=== PATIENT | female | born 1960 | race Caucasian/White ===

== ENCOUNTER 2016-08-31 23:59 | Emergency (ER) | payer SELFPAY ==
[~2016-08-31] VITALS: Ht 160 cm; Wt 68.0 kg
[~2016-08-31 23:59] MED LIST: ASA; ASPIRIN81 M3 PO; ATENOLOL25 M1 PO; CYMBALTA30 MG PO; DIABETA5 M1 PO; GEMFIBROZIL600 M1 PO; GLUCOPHAGE500 MG PO; GLYBURIDE5 M1 PO; HCTZ PO; IMITREX50 MG PO; LANTUS100 U/ML SC; LISINOPRIL20 M1 PO; MECLIZINE25 M1 PO; METFORMIN1000 MG PO; OMEPRAZOLE20 M1 PO; PAXIL20 M1 PO; PROMETHAZINE25 M1 PO; SEPTRA DS 800 M1 TA1 PO; TAGAMET PO; TEGRETOL200 MG PO; ZESTRIL40 M1 PO
[2016-09-01 00:17] VITALS: BP 141/77
[2016-09-01] MEDS ORDERED: GLUCOTROL10 M1 PO (00:43)
[2016-09-01] MEDS ORDERED: RANITIDINE150 M1 PO (00:43)
[2016-09-01] MEDS ORDERED: TOPIRAMATE100 MG PO (00:43)
[2016-09-01] MEDS ORDERED: ZOLOFT100 M1 PO (00:43)
[2016-09-01] MEDS ORDERED: ACTOS45 M1 PO (00:43)
--- NOTE | 2016-09-01 01:41 | NUR ---
PATIENT TO BED 4.
--- NOTE | 2016-09-01 01:42 | NUR ---
55Y F BIB SELF C/O OF MIGRAINE AND AB PAIN X 1 WEEK . PT STATE SHE HAS NOT BEEN ABLE TO EAT ANYTHING FOR 1 WEEK JUST WATER. PT DENIES N/V/D; SKIN IS PINK/WARM/DRY; AAOX4 WITH EVEN AND STEADY GAIT; LUNGS CLEAR BL; HR EVEN AND REGULAR; PT DENIES ANY FEVER, CP, SOB, OR COUGH AT THIS TIME; PATIENT STATES PAIN OF 10/10 AT THIS TIME; VSS; PATIENT POSITIONED FOR COMFORT; HOB ELEVATED; BEDRAILS UP X2; BED DOWN. ER MD MADE AWARE OF PT STATUS.
--- NOTE | 2016-09-01 03:17 | NUR ---
Patient being evaluated by physician at bedside.
[2016-09-01] MEDS ORDERED: NACL 0.9% 1,000 ML IV ONE (03:24)
[2016-09-01] MEDS ORDERED: METOCLOPRAMIDE 10 MG/2 ML INJ VIAL IVP ONE (03:25)
[2016-09-01] MEDS ORDERED: diphenhydrAMINE 50 MG/ML VIAL IVP ONE (03:25)
--- NOTE | 2016-09-01 04:51 | NUR ---
IV removed, catheter intact and site benign. Applied folded 4x4 gauze and tape to stop bleeding.
--- NOTE | 2016-09-01 04:52 | NUR ---
Patient discharged with v/s stable. Written and verbal after care instructions given and explained. Patient alert, oriented and verbalized understanding of instructions. Ambulatory with steady gait. All questions addressed prior to discharge. ID band removed. Patient advised to follow up with PMD. Rx of MOTRIN 600MG, CIPRO 500MG, NORCO 5/325MG, ZOFRAN 8MG given. Patient educated on indication of medication including possible reaction and side effects. Opportunity to ask questions provided and answered.
[2016-09-01 04:53] VITALS: BP 127/79
== END 2016-09-01 04:52 | disposition home or self-care (01) ==
LOC: MED 23:59
DX: N39.0 Urinary tract infection, site not specified (principal); K31.84 Gastroparesis; K21.9 Gastro-esophageal reflux disease without esophagitis; I10 Essential (primary) hypertension; E11.9 Type 2 diabetes mellitus without complications; Z86.73 Personal history of transient ischemic attack (TIA), and cerebral infarction without residual deficits; Z90.49 Acquired absence of other specified parts of digestive tract; Z79.899 Other long term (current) drug therapy
CPT/HCPCS: 36415; 80053; 81001; 81025; 83690; 85025; 87086; 87186; 96361; 96374; 96375; 99284; J1200; J2765; J7030

== ENCOUNTER 2016-09-03 05:32 | Inpatient (IN) | payer SELFPAY ==
[~2016-09-03] VITALS: Ht 157.5 cm; Wt 71.2 kg
[~2016-09-03 05:32] MED LIST changes: +ACTOS45 M1 PO; +GLUCOTROL10 M1 PO; +RANITIDINE150 M1 PO; +TOPIRAMATE100 MG PO; +ZOLOFT100 M1 PO
[2016-09-03 05:48] VITALS: BP 150/75
--- NOTE | 2016-09-03 05:56 | NUR ---
PT TAKEN TO BED 8
--- NOTE | 2016-09-03 05:58 | NUR ---
55 YEAR OLD FEMALE C/O ABD PAIN AND HEADACHE, N/V X1 WEEK. PATIENT STATED WAS SEEN 2 DAYS AGO HERE IN ER, BUT CONDITION WORSEN, NO S/S OF DISTRESS, ER MD AT BEDSIDE.
[2016-09-03] MEDS ORDERED: NACL 0.9% 1,000 ML IV SCH (06:11)
--- NOTE | 2016-09-03 06:12 | NUR ---
Dr. Lange evaluating patient at bedside.
[2016-09-03] MEDS ORDERED: ONDANSETRON 4 MG/2 ML VIAL IVP ONE ×2 (06:15→07:50)
[2016-09-03] MEDS ORDERED: INSULIN HUMAN REGULAR 100 UNITS/ML 10 ML VIAL IVP ONE ×2 (06:15→06:35)
[2016-09-03] MEDS ORDERED: FAMOTIDINE 20 MG/2 ML VIAL IVP ONE (06:15)
--- NOTE | 2016-09-03 07:12 | NUR ---
Pt report given to VELASQUEZ MTZ. Transfer of care at this time.
--- NOTE | 2016-09-03 07:17 | NUR ---
Took over care of patient, introducted myself to the patient and gave them an update that we are waiting on lab work to return. Patient resting comfortably in bed, denies mike N/V/D, No CP or SOB. Patient states she is feeling a little dizzy, side rail up x1 family at bedside where the other side rail is down.
--- NOTE | 2016-09-03 07:48 | NUR ---
Notified ER doctor that patient is vomitting and feels dizzy. Ordered zofran IVP and 1 liter of NS fluid.
[2016-09-03] MEDS ORDERED: NACL 0.9% 1,000 ML IV ONE (07:50)
--- NOTE | 2016-09-03 08:25 | NUR ---
patient is resting in bed, no longer vomitting, IVF still running as patient keeps bending her arm which is stopping the IV pump. Instructed patient to do the best she can to keep her arm straight so the IVF can continue to go in.
--- NOTE | 2016-09-03 09:16 | NUR ---
patient is vomitting, notified ER Doctor
[2016-09-03] MEDS ORDERED: METOCLOPRAMIDE 10 MG/2 ML INJ VIAL IVP ONE (09:20)
--- NOTE | 2016-09-03 09:35 | NUR ---
Patient resting in bed no vomitting at this time
--- NOTE | 2016-09-03 10:22 | NUR ---
patient having vomitting at this time ER notified
--- NOTE | 2016-09-03 11:36 | NUR ---
Pt report given to Bhargav. Transfer of care at this time.
[2016-09-03] MEDS ORDERED: ONDANSETRON 4 MG/2 ML VIAL IVP PRN (11:40)
[2016-09-03] MEDS ORDERED: MORPHINE SULFATE 2 MG/ML SYR IVP PRN (11:40)
[2016-09-03] MEDS ORDERED: DOCUSATE SODIUM 100 MG GELCAP PO PRN (11:40)
[2016-09-03] MEDS: NACL 0.9% 1,000 ML IV SCH ×2 (11:40→23:57)
[2016-09-03] MEDS ORDERED: ACETAMINOPHEN 325 MG TAB PO PRN (11:40)
[2016-09-03 12:00] VITALS: BP 164/91
[2016-09-03] MEDS ORDERED: DEXTROSE 50% 50 ML SYR IVP PRN (12:00)
--- NOTE | 2016-09-03 12:00 | NUR ---
PATIENT ARRIVED TO THE UNIT FROM ER WITH DX OF INTRACTABLE VOMITING. PATIENT AWAKE, ALERT, ORIENTED AND AMBULATORY. NO ACTIVE VOMITING AT THIS MOMENT. PATIENT BREATHING ON ROOM AIR. NO SOB. SKIN IS INTACT. IV LINE NOTED TO THE RIGHT AC SALINE LOCKED. PATIENT PLACED ON TELE MONITORING. BED LOWERED WITH CALL LIGHT WITHIN REACH. WILL CONTINUE TO MONITOR
--- NOTE | 2016-09-03 14:00 | NUR ---
PATIENT ASLEEP IN BED. NO S/S OF DISTRESS NOTED
[2016-09-03] MEDS: METOCLOPRAMIDE 10 MG/2 ML INJ VIAL IVP SCH ×2 (14:27→20:57)
[2016-09-03 16:00] VITALS: BP 137/71
[2016-09-03] MEDS ORDERED: PNEUMOCOCCAL VACCINE 23 MCG/0.5 ML VIAL IMVAC SCH (16:10)
[2016-09-03] MEDS ORDERED: INFLUENZA VIRUS VACCINE QUAD 0.5 ML SYR IMVAC SCH (16:10)
[2016-09-03] MEDS ORDERED: LISINOPRIL 10 MG TAB PO SCH (16:30)
[2016-09-03] MEDS: BLOOD GLUCOSE MONITORING 1 DEV DEV FS SCH ×2 (16:30→20:57)
--- NOTE | 2016-09-03 16:30 | NUR ---
BLOOD SUGAR 246. WILL ADMINISTER INSULIN PER SLIDING SCALE
--- NOTE | 2016-09-03 17:30 | NUR ---
PATIENT ATE DINNER AND TOLERATED IT WELL
[2016-09-03] MEDS: INSULIN ASPART SLIDING SCALE 100 UNITS/ML VIAL SUBQ PRN ×2 (17:55→21:11)
[2016-09-03] MEDS: HYDROcodone/APAP 5/325 MG 1 TAB TAB PO PRN (18:03)
--- NOTE | 2016-09-03 19:25 | NUR ---
ENDORSED CONTINUITY OF CARE TO THE NIGHT NURSE. PATIENT IN STABLE CONDITION
--- NOTE | 2016-09-03 19:35 | NUR ---
SEEN PT AWAKE, ALERT AND ORIENTED, LATVIAN-SPEAKING MOSTLY. FAMILY MEMBERS AT BEDSIDE. INITIAL ASSESSMENT DONE. VITAL SIGNS CHECKED. PT DENIES ANY DISCOMFORT AT THIS TIME. PLAN OF CARE DISCUSSED. PT APPEARS TO UNDERSTAND. NO FURTHER QUESTIONS AT THIS TIME. SAFETY ENSURED. CALL LIGHT W/IN REACH. SON AT BEDSIDE ASKING FOR A DOCTOR'S NOTE FOR HIS WORK. WILL NOTIFY THE TRACK LINER OPERATOR AROUND.
[2016-09-03 20:00] VITALS: BP 107/70
--- NOTE | 2016-09-03 21:05 | NUR ---
BLOOD SUGAR CHECKED: 226. WILL COVER W/ INSULIN ORDERED. REGLAN IVP GIVEN WELL. TEACHINGS GIVEN. SNACKS PROVIDED. WILL CONTINUE TO MONITOR.
[2016-09-04] VITALS: BP 128/64
--- NOTE | 2016-09-04 00:05 | NUR ---
SEEN PT APPEARS COMFORTABLE. VITAL SIGNS CHECKED. CALL LIGHT W/IN REACH.
[2016-09-04 04:00] VITALS: BP 161/88
--- NOTE | 2016-09-04 04:00 | NUR ---
PT GOT BACK FROM THE BATHROOM. PT COMPLAINING OF FEELING NAUSEOUS AND HEADACHE WELL. WILL MEDICATE FOR PAIN ORDERED. VITAL SIGNS CHECKED. XE=828/88. WILL CONTINUE TO MONITOR.
[2016-09-04] MEDS: METOCLOPRAMIDE 10 MG/2 ML INJ VIAL IVP SCH ×3 (04:05→20:58)
[2016-09-04] MEDS: HYDROcodone/APAP 5/325 MG 1 TAB TAB PO PRN ×2 (04:06→12:28)
[2016-09-04] MEDS: NACL 0.9% 1,000 ML IV SCH ×2 (05:52→14:24)
[2016-09-04] MEDS: INSULIN ASPART SLIDING SCALE 100 UNITS/ML VIAL SUBQ PRN ×4 (06:58→21:08)
--- NOTE | 2016-09-04 07:15 | NUR ---
RECEIVED REPORT FROM THE TEST ENGINEERING TECHNICIAN NURSE AT BEDSIDE FOR CONTINUITY OF CARE. PT IS AWAKE AND ORIENTED. GERMAN SPEAKING. AT BEDSIDE. PT DOES SPEAK VERY LITTLE TONGAN. I INTRODUCE MYSELF AND UPDATED THE BOARD. EXPLAINED PT THAT ORDERED A CT OF THE ABD/PELV WITH CONTRAST. I ASKED IF SHE HAD CT BEFORE. PT STATED NO. NOTED THE IV ON THE R AC 20G, NS INFUSING AT 110ML/HR. PT HAS NO COMPLAINTS AT THIS TIME. WILL CONTINUE TO MONITOR PT.
[2016-09-04] MEDS: BLOOD GLUCOSE MONITORING 1 DEV DEV FS SCH ×4 (07:30→21:08)
[2016-09-04 08:00] VITALS: BP 137/71
--- NOTE | 2016-09-04 08:00 | NUR ---
V/S WITHIN NORMAL RANGE. ALL SAFETY MEASURES IN PLACE. WILL CONTINUE TO MONITOR.
--- NOTE | 2016-09-04 08:14 | NUR ---
PATIENT HAS BEEN SCREENED AND CATEGORIZED MODERATE NUTRITION RISK. PATIENT WILL BE SEEN WITHIN 3-5 DAYS OF ADMISSION. 09/06/16-09/08/[address]
--- NOTE | 2016-09-04 08:55 | NUR ---
RADIOLOGY IS HERE TO TAKE PT FOR CT ABD/PELV W/ CONTRAST. CONSENT IN CHART. TICKET TO RIDE IN CHART. PT IV SL.
--- NOTE | 2016-09-04 09:05 | NUR ---
NOTIFIED MD OF LOW COUNTS. DR. WARE IS AWARE OF HGB 9.5 AND HCT 28.9 AND MAG 1.1
[2016-09-04] MEDS: LISINOPRIL 10 MG TAB PO SCH (10:03)
[2016-09-04] MEDS: PANTOPRAZOLE 40 MG INJ VIAL IVP SCH (10:03)
--- NOTE | 2016-09-04 10:03 | NUR ---
PT ARRIVED BACK ON THE FLOOR. ADMINISTERED HER MORNING MEDS. PT TOLERATED WELL. WILL CONTINUE TO MONITOR PT.
--- NOTE | 2016-09-04 11:30 | NUR ---
PT IS HUNGRY. WE WILL GET HER SOME JUICE AND JELLO FOR NOW.
[2016-09-04 12:00] VITALS: BP 126/81
[2016-09-04] MEDS: glipiZIDE 10 MG TAB PO SCH (12:15)
--- NOTE | 2016-09-04 12:30 | NUR ---
HER L[facility]. TOLERATED THE JELLO AND JUICE EARLIER. WILL BRING HER THE TRAY ONCE IT COMES ON THE FLOOR.
[2016-09-04] MEDS ORDERED: MAG SULF 2000 MG/WATER PREMIX 50 ML IV SCH (15:00)
--- NOTE | 2016-09-04 15:10 | NUR ---
PT SLEEPING WITH SPOUSE AT BEDSIDE. ADMINISTERED MAG RIDER FOR LOW POTASSIUM. WILL CONTINUE TO CHECK ON PT.
[2016-09-04] MEDS: IBUPROFEN 400 MG TAB PO PRN (15:47)
--- NOTE | 2016-09-04 15:50 | NUR ---
ADMINISTERED MOTRIN FOR KIDNEY PAIN 03/23. PER DR. WARE, FOR VISCERAL PAIN, MOTRIN WILL WORK BETTER. WILL CONTINUE TO MONITOR PT.
[2016-09-04 16:00] VITALS: BP 160/91
[2016-09-04] MEDS: metFORMIN 850 MG TAB PO SCH (17:00)
[2016-09-04] MEDS ORDERED: LEVOFLOXACIN 750 MG/D5W PREMIX 150 ML IV SCH (17:00)
--- NOTE | 2016-09-04 17:00 | NUR ---
HOLDING METFORMIN. PT HAS A CT SCAN WITH IV CONTRAST. NEED TO HOLD FOR 72HRS PER PROTOCOL. WILL PASS ON TO THE EXPLOSIVE MAN NURSE.
--- NOTE | 2016-09-04 17:59 | NUR ---
PT IS DOING MUCH BETTER. SHE FINISHED HER MAG RIDER. STARTED ON HER LEVAQUIN. SHE IS TOLERATING WELL. PT IS EATING DINNER. NO SIGNS OF DISTRESS AND NO NAUSEA. PAIN IS MUCH BETTER CONTROLLED. PT IS SURROUNDED BY FAMILY MEMBERS AND FRIENDS. WILL CONTINUE TO MONITOR PT.
--- NOTE | 2016-09-04 19:10 | NUR ---
ENDORSED PT TO THE LOAD TESTER NURSE AT BEDSIDE FOR CONTINUITY OF CARE. PT IS STABLE.
--- NOTE | 2016-09-04 19:35 | NUR ---
RECEIVED REPORT FROM VELASQUEZ DESAI AT BEDSIDE. PT AAOX4. PT'S SKIN IS INTACT. PT AMBULATORY, PT HAS IV TO RIGHT HAND G22; ASYMPTOMATIC, PATENT AND INTACT INFUSING FLUIDS WELL. ORIENTED PT TO ROOM AND SURROUNDINGS AND USE OF CALL LIGHT. EXPLAINED PLAN OF CARE TO PT AND SHE VERBALIZED UNDERSTANDING. CALL LIGHT WITHIN REACH.
[2016-09-04] MEDS: SACCHAROMYCES 250 MG CAP PO SCH (20:58)
[2016-09-04] MEDS: TOPIRAMATE 100 MG TAB PO SCH (20:58)
--- NOTE | 2016-09-04 21:09 | NUR ---
PT TOLERATED 2100 MEDS WELL. CALL LIGHT WITHIN REACH.
--- NOTE | 2016-09-04 23:15 | NUR ---
PT REQUESTED A SANDWICH, PROVIDED HER WITH A HAM SANDWICH. WILL CONTINUE TO MONITOR PT.
[2016-09-05] VITALS: BP 148/88
[2016-09-05] MEDS: NACL 0.9% 1,000 ML IV SCH ×2 (00:04→03:24)
--- NOTE | 2016-09-05 01:19 | NUR ---
PT COMPLAINING OF PAIN 01/20. VS STABLE, WILL GIVE MOTRIN ORDERED
[2016-09-05] MEDS: IBUPROFEN 400 MG TAB PO PRN (01:21)
--- NOTE | 2016-09-05 03:15 | NUR ---
IV PUMP ALARMING; FLUSHED AND INFUSING FLUIDS WELL. WILL CONTINUE TO MONITOR PT.
--- NOTE | 2016-09-05 04:44 | NUR ---
PT AMBULATED TO THE RESTROOM; PT BACK IN BED RESTING COMFORTABLY, CALL LIGHT WITHIN REACH.
--- NOTE | 2016-09-05 05:02 | NUR ---
AIR EXPORT AGENT AT BEDSIDE DRAWING MORNING LABS. CALL LIGHT WITHIN REACH.
[2016-09-05] MEDS: METOCLOPRAMIDE 10 MG/2 ML INJ VIAL IVP SCH (05:33)
[2016-09-05] MEDS: BLOOD GLUCOSE MONITORING 1 DEV DEV FS SCH (06:38)
[2016-09-05] MEDS: INSULIN ASPART SLIDING SCALE 100 UNITS/ML VIAL SUBQ PRN (06:38)
--- NOTE | 2016-09-05 06:52 | NUR ---
PT SLEEPING AT THIS TIME, PT STABLE; WILL CONTINUE TO MONITOR PT.
--- NOTE | 2016-09-05 07:40 | NUR ---
ENDORSED PT IN STABLE CONDITION VITA [place] FOR CONTINUITY OF CARE.
--- NOTE | 2016-09-05 07:42 | NUR ---
RECEIVED REPORT FROM NIGHT RN. PT RESTING IN BED. AAOX4. NO S/S OF ACUTE DISTRESS. PT DENIES PAIN AT THIS TIME. IV SITES PATENT AND INTACT. PT STATES SOME NAUSEA BUT WANTS TO TRY TO EAT TO SEE IF IT GOES AWAY. CALL LIGHT WITHIN REACH. SAFETY MEASURES ENSURED. WILL CONTINUE TO MONITOR.
[2016-09-05 08:00] VITALS: BP 159/90
[2016-09-05] MEDS: metFORMIN 850 MG TAB PO SCH (08:00)
[2016-09-05] MEDS ORDERED: FLORASTOR 33 MG1 CAP PO (08:49)
[2016-09-05] MEDS ORDERED: LISINOPRIL10 M1 PO (08:49)
[2016-09-05] MEDS ORDERED: LEVAQUIN750 MG PO (08:49)
[2016-09-05] MEDS ORDERED: ZOFRAN8 MG PO (08:50)
[2016-09-05] MEDS ORDERED: IBU400 M1 PO (08:52)
[2016-09-05] MEDS ORDERED: MAG SULF 2000 MG/WATER PREMIX 100 ML IV SCH (09:00)
[2016-09-05] MEDS: PANTOPRAZOLE 40 MG INJ VIAL IVP SCH (09:02)
[2016-09-05] MEDS: TOPIRAMATE 100 MG TAB PO SCH (09:02)
[2016-09-05] MEDS: LISINOPRIL 10 MG TAB PO SCH (09:02)
[2016-09-05] MEDS: SACCHAROMYCES 250 MG CAP PO SCH (09:02)
[2016-09-05] MEDS: glipiZIDE 10 MG TAB PO SCH (09:02)
[2016-09-05] MEDS ORDERED: MAGNESIUM OXIDE 400 MG TAB PO SCH (09:25)
[2016-09-05 09:28] VITALS: BP 159/90
--- NOTE | 2016-09-05 10:34 | NUR ---
PT CLEARED FOR DISCHARGE. DISCHARGE INSTRUCTIONS PROVIDED TO PT AND DAUGHTER. BOTH VERBALIZE UNDERSTANDING. IV'S TAKEN OUT. TIPS INTACT. NO S/S OF ACUTE DISTRESS. PT DENIES PAIN. PT REMAINS IN STABLE CONDITION.
--- NOTE | 2016-09-05 10:44 | NUR ---
PT TAKEN OF UNIT. NO S/S OF ACUTE DISTRESS. PT DENIES PAIN. PT REMAIN IN STABLE CONDITION.
== END 2016-09-05 10:44 | disposition home or self-care (01) | DRG 73 ==
LOC: MED 05:32 → MTU 11:41
PROVIDERS: ADMIT Student in an Organized Health Care Education/Training Program; ATTEND Student in an Organized Health Care Education/Training Program
PROC: 3E0234Z Introduction of Serum, Toxoid and Vaccine into Muscle, Percutaneous Approach (ICD-10-PCS; principal; 2016-09-03)
DX: E11.43 Type 2 diabetes mellitus with diabetic autonomic (poly)neuropathy (principal); N17.0 Acute kidney failure with tubular necrosis; E43 Unspecified severe protein-calorie malnutrition; N12 Tubulo-interstitial nephritis, not specified as acute or chronic; E11.65 Type 2 diabetes mellitus with hyperglycemia; D64.9 Anemia, unspecified; R80.9 Proteinuria, unspecified; I16.0 Hypertensive urgency; I10 Essential (primary) hypertension; E78.5 Hyperlipidemia, unspecified; K21.9 Gastro-esophageal reflux disease without esophagitis; G43.909 Migraine, unspecified, not intractable, without status migrainosus; F32.9 Major depressive disorder, single episode, unspecified; E78.00 Pure hypercholesterolemia, unspecified; D71 Functional disorders of polymorphonuclear neutrophils; E83.42 Hypomagnesemia; Z90.49 Acquired absence of other specified parts of digestive tract; Z86.73 Personal history of transient ischemic attack (TIA), and cerebral infarction without residual deficits; Z68.28 Body mass index [BMI] 28.0-28.9, adult; K31.84 Gastroparesis; Z23 Encounter for immunization

== ENCOUNTER 2016-09-26 17:00 | Emergency (ER) | payer SELFPAY ==
[~2016-09-26] VITALS: Ht 160 cm; Wt 66.2 kg
[~2016-09-26 17:00] MED LIST changes: +FLORASTOR 33 MG1 CAP PO; +IBU400 M1 PO; +LEVAQUIN750 MG PO; +LISINOPRIL10 M1 PO; +ZOFRAN8 MG PO
[2016-09-26 17:08] VITALS: BP 124/76
--- NOTE | 2016-09-26 17:18 | NUR ---
Patient to bed 04.
--- NOTE | 2016-09-26 17:20 | NUR ---
55/F BIB FAMILY C/O N/V, EPIGASTRIC PAIN & HEADACHE X 3 DAYS. PT STATES DISCHARGE FROM [facility] 3 WEEKS AGO WITH SAME S/S . PT DENIES DIARRHEA; SKIN IS PINK/WARM/DRY; AAOX4 WITH EVEN AND STEADY GAIT; LUNGS CLEAR BL; HR EVEN AND REGULAR; PT DENIES ANY FEVER, CP, SOB, OR COUGH AT THIS TIME; PATIENT STATES PAIN OF 10/10 AT THIS TIME; VSS; PATIENT POSITIONED FOR COMFORT; HOB ELEVATED; BEDRAILS UP X2; BED DOWN. ER MD MADE AWARE OF PT STATUS.
--- NOTE | 2016-09-26 17:24 | NUR ---
Dr. Quezada evaluating patient at bedside.
[2016-09-26] MEDS ORDERED: NACL 0.9% 1,000 ML IV SCH (17:28)
[2016-09-26] MEDS ORDERED: MORPHINE SULFATE 4 MG/ML SYR IVP ONE (17:30)
[2016-09-26] MEDS ORDERED: METOCLOPRAMIDE 10 MG/2 ML INJ VIAL IVP ONE (17:30)
--- NOTE | 2016-09-26 19:00 | NUR ---
IV removed, catheter intact and site benign. Applied folded 4x4 gauze and tape to stop bleeding.
[2016-09-26 19:13] VITALS: BP 108/76
--- NOTE | 2016-09-26 19:13 | NUR ---
Patient discharged with v/s stable. Written and verbal after care instructions given and explained. Patient alert, oriented and verbalized understanding of instructions. Ambulatory with steady gait. All questions addressed prior to discharge. ID band removed. Patient advised to follow up with PMD. Rx of PRILOSEC & REGLAN given. Patient educated on indication of medication including possible reaction and side effects. Opportunity to ask questions provided and answered.
== END 2016-09-26 19:13 | disposition home or self-care (01) ==
LOC: MED 17:00
DX: G89.29 Other chronic pain (principal); R10.13 Epigastric pain; G43.909 Migraine, unspecified, not intractable, without status migrainosus; E11.9 Type 2 diabetes mellitus without complications; I10 Essential (primary) hypertension; K21.9 Gastro-esophageal reflux disease without esophagitis; Z86.73 Personal history of transient ischemic attack (TIA), and cerebral infarction without residual deficits; Z90.49 Acquired absence of other specified parts of digestive tract; Z79.899 Other long term (current) drug therapy
CPT/HCPCS: 36415; 80053; 81001; 82550; 82553; 82948; 83605; 83690; 84484; 85025; 93005; 96361; 96374; 96375; 99285; J2270; J2765; J7030

== ENCOUNTER 2019-08-26 18:43 | Inpatient (IN) | payer MEDICAID, OTHER ==
[~2019-08-26] VITALS: Ht 160 cm; Wt 86.6 kg
[~2019-08-26 18:43] MED LIST changes: -ACTOS45 M1 PO; -ASA; -ASPIRIN81 M3 PO; -ATENOLOL25 M1 PO; -CYMBALTA30 MG PO; -DIABETA5 M1 PO; -FLORASTOR 33 MG1 CAP PO; -GEMFIBROZIL600 M1 PO; +GLIP10TA3 PO; -GLUCOPHAGE500 MG PO; -GLUCOTROL10 M1 PO; -GLYBURIDE5 M1 PO; -HCTZ PO; -IBU400 M1 PO; +IBUP-2216 PO; -IMITREX50 MG PO; -LANTUS100 U/ML SC; -LEVAQUIN750 MG PO; +LEVO750T2 PO; +LISI10TA11 PO; -LISINOPRIL10 M1 PO; -LISINOPRIL20 M1 PO; -MECLIZINE25 M1 PO; +METF100028 PO; -METFORMIN1000 MG PO; -OMEPRAZOLE20 M1 PO; +ONDA8TAB PO; -PAXIL20 M1 PO; +PIOG45TA10 PO; -PROMETHAZINE25 M1 PO; +RANI150T8 PO; -RANITIDINE150 M1 PO; +SACC250C1 PO; -SEPTRA DS 800 M1 TA1 PO; +SERT100T1 PO; -TAGAMET PO; -TEGRETOL200 MG PO; +TOPI100T33 PO; -TOPIRAMATE100 MG PO; -ZESTRIL40 M1 PO; -ZOFRAN8 MG PO; -ZOLOFT100 M1 PO
[2019-08-26 19:12] VITALS: BP 106/61
--- NOTE | 2019-08-26 19:22 | NUR ---
PT AMBULATED TO BED #4
[2019-08-26] MEDS ORDERED: NACL 0.9% 1,000 ML IV SCH ×2 (19:28→19:40)
[2019-08-26] MEDS ORDERED: ONDANSETRON 4 MG/2 ML VIAL IVP ONE (19:30)
--- NOTE | 2019-08-26 19:30 | NUR ---
Note undone in EDM - 08/26/19 at 2241 by [facility] PT CAME INTO ER WITH C/O DIZZINESS, BODY ACHES. PT WAS REFERRED TO ER BY AN URGENT CARE. PT IS ALERT AND ABLE TO ANSER QUESTIONS APPROPRIATELY. PT STATED THAT HER BS WAS OVER 500 IN URGENT CARE. PT HAS HX OF DM. PT STATED THAT SHE TAKES MEDICATION REGULARLY. FAMILY IS AT BEDSIDE. PT PAIN IS 7/10 AT THIS TIME. ERMD MADE AWARE OF STATUS, SAFETY MEASURES IN PLACE.
--- NOTE | 2019-08-26 19:30 | NUR ---
PT CAME INTO ER WITH C/O DIZZINESS, BODY ACHES. PT WAS REFERRED TO ER BY AN URGENT CARE. PT IS ALERT AND ABLE TO ANSWER QUESTIONS APPROPRIATELY. PT STATED THAT HER BS WAS OVER 500 IN URGENT CARE. PT HAS HX OF DM. PT STATED THAT SHE TAKES MEDICATION REGULARLY. FAMILY IS AT BEDSIDE. PT PAIN IS 7/10 AT THIS TIME. ERMD MADE AWARE OF STATUS, SAFETY MEASURES IN PLACE.
--- NOTE | 2019-08-26 19:36 | NUR ---
Dr. Pepper examining patient.
[2019-08-26 20:48] LABS: BASOPHILS % (AUTO) 0.2 % (0.0-2.0); EOSINOPHILS % (AUTO) 0.1 % (0.0-4.0); HEMATOCRIT 33.6 % (36-48); HEMOGLOBIN 11.1 g/dL (12.0-16.0); LYMPHOCYTES # (AUTO) 0.8 K/uL (2.5-16.5); LYMPHOCYTES % (AUTO) 5.5 % (20.5-51.1); MEAN CORPUSCULAR HEMOGLOBIN 28 pg (27-31); MEAN CORPUSCULAR HGB CONC 33 g/dL (33-37); MEAN CORPUSCULAR VOLUME 84.4 fL (80-94); MONOCYTES # (AUTO) 1.2 K/uL (0.8-1.0); NEUTROPHILS # (AUTO) 12.7 K/uL (1.8-7.7); NEUTROPHILS % (AUTO) 86.2 % (42.2-75.2); PLATELET COUNT (AUTO) 285 K/uL (140-450); RED BLOOD CELL COUNT(AUTO) 3.98 MIL/uL (4.20-5.40); RED CELL DISTRIBUTION WIDTH 14.8 % (11.6-13.7); WHITE BLOOD COUNT (AUTO) 14.7 K/uL (4.8-10.8)
[2019-08-26 20:55] LABS: ALBUMIN 2.9 g/dL (3.4-5.0); ANION GAP 14.5 (8-16); CARBON DIOXIDE 25.1 mmol/L (21-32); CREATININE 1.7 mg/dL (0.6-1.3); POTASSIUM 4.6 mmol/L (3.5-5.1); TOTAL BILIRUBIN 0.7 mg/dL (0.0-1.0)
[2019-08-26 20:59] LABS: PROTHROMBIN TIME 10.3 secs (10.8-13.4)
[2019-08-26] MEDS ORDERED: AZITHROMYCIN 500 MG in DEXTROSE 5% 250 ML IV ONE (21:35)
[2019-08-26] MEDS ORDERED: OSELTAMIVIR PHOSPHATE 75 MG CAP PO ONE (21:35)
[2019-08-26 21:42] LABS: APPEARANCE,URINE CLEAR (CLEAR); BILIRUBIN,URINE NEGATIVE (NEGATIVE); BLOOD, URINE 1+ (NEGATIVE); COLOR,URINE YELLOW (YELLOW); LEUKOCYTE ESTERASE ,URINE 1+ (NEGATIVE); NITRITE, URINE NEGATIVE (NEGATIVE); UGLUCOSE 3+ (NEGATIVE)
--- NOTE | 2019-08-26 22:00 | NUR ---
PT HAVING CHILLS, STATES SHE FEELS HOT. TEMP IS 99.4 ORAL. ERMD MADE AWARE.
[2019-08-26] MEDS ORDERED: cefTRIAXone 1,000 MG VIAL ONE (22:04)
[2019-08-26] MEDS ORDERED: AZITHROMYCIN 500 MG INJ VIAL IV ONE (22:34)
[2019-08-26] MEDS ORDERED: IBUPROFEN 600 MG TAB PO ONE (22:35)
[2019-08-26] MEDS: NACL 0.9% 1,000 ML IV SCH (22:42)
[2019-08-26] MEDS ORDERED: DOCUSATE SODIUM 100 MG GELCAP PO PRN (22:45)
[2019-08-26] MEDS ORDERED: ZOLPIDEM 5 MG TAB PO PRN (22:45)
[2019-08-26] MEDS ORDERED: HYDROcodone/APAP 5/325 MG 1 TAB TAB PO PRN (22:45)
[2019-08-26] MEDS ORDERED: LORazepam 2 MG/ML VIAL IM/IVP PRN (22:45)
[2019-08-26] MEDS ORDERED: DEXTROSE 50% 50 ML SYR IVP PRN (23:30)
[2019-08-26] MEDS ORDERED: NITROGLYCERIN 0.4 MG TAB SL PRN (23:30)
[2019-08-26] MEDS ORDERED: PIOG45TA67 PO (23:32)
[2019-08-26] MEDS ORDERED: OMEP40EC14 PO (23:32)
[2019-08-26] MEDS ORDERED: FURO-570 PO (23:32)
[2019-08-26] MEDS ORDERED: SIMV40TA1 PO (23:32)
--- NOTE | 2019-08-26 23:40 | NUR ---
Pt report given to LENARD PERALTA. TRANSFERRED TO ROOM 106B. Transfer of care at this time. VSS
[2019-08-26] MEDS ORDERED: ATORVASTATIN 20 MG TAB PO SCH (23:45)
[2019-08-26] MEDS ORDERED: METOPROLOL 25 MG TAB PO SCH (23:45)
[2019-08-26] MEDS ORDERED: ASPIRIN 81 MG TAB.CHEW PO SCH (23:45)
[2019-08-26 23:50] VITALS: BP 131/62
--- NOTE | 2019-08-26 23:50 | NUR ---
Admitted from ER TO TELEMETRY UNIT, with chief complaint of HIGH BLOOD SUGAR AND HIGH BLOOD PRESSURE , 58 y/o ,Female, Cooperative, AWAKE, A/OX4. RESPIRATION EVEN AND UNLABORED. IV ZITHROMAX INFUSING, RIGHT WRIST G22. ABLE TO AMBULATE INDEPENDENTLY. HEAD TO TOE ASSESSMENT DONE WITH VELASQUEZ GOODSON. SKIN IS INTACT. COMPLAINT OF CHEST PAIN ESPECIALLY DURING COUGHING, 8/10, DESCRIBED HEAVY PRESSURE AND ABDOMINAL PAIN 8/10. WILL BE MEDICATED ORDERED.oriented to call light, bed, phone,television, bathroom, smoking policy,visiting hours, procedures, ID bracelet on. Belongings list checked. ADMISSION DATA AND PLAN OF CARE DISCUSSED WITH PATIENT WITH HELP OF DIRECTOR PHONE LEOBARDO, #[phone].
[2019-08-26] MEDS ORDERED: GLIP10TA3 PO (23:59)
[2019-08-27 00:03] LABS: BARBITURATE, URINE NEG. ng/ml (NEG <=200); BENZODIAZEPINE, URINE NEG. ng/mL (NEG <=200); CANNABINOID, URINE NEG. ng/mL (NEG <=50); COCAINE, URINE NEG. ng/mL (NEG <=300); OPIATE, URINE NEG. ng/mL (NEG <=2000); PHENCYCLIDINE SCREEN,URINE NEG. ng/mL (NEG <=25)
--- NOTE | 2019-08-27 00:15 | NUR ---
Patient's Plan of Care was discussed and reviewed with ASSEMBLY ASSOCIATE: LANG
[2019-08-27] MEDS ORDERED: HUM7525 SUBQ (00:27)
[2019-08-27] MEDS: MORPHINE SULFATE 2 MG/ML SYR IVP PRN ×2 (00:31→22:58)
[2019-08-27] MEDS: INSULIN LISPRO SLIDING SCALE 100 UNITS/ML VIAL SUBQ PRN ×5 (00:37→20:36)
--- NOTE | 2019-08-27 00:37 | NUR ---
BS CHECKED -326, MEDICATED WITH HUMALOG 8 UNITS PER SLIDING SCALE.
[2019-08-27 00:49] LABS: RBC,URINE TOO NUMEROUS TO COUN /HPF (0-5); WBC,URINE TOO MANY TO COUNT /HPF (0-5)
[2019-08-27] MEDS ORDERED: NACL 0.9% 1,000 ML IV SCH (00:55)
--- NOTE | 2019-08-27 01:50 | NUR ---
TAKEN TO RADIOLOGY VIA W/C FOR CT OF ABDOMEN/PELVIS.
--- NOTE | 2019-08-27 02:10 | NUR ---
BACK FROM RADIOLOGY. GOES BACK TO SLEEP.
--- NOTE | 2019-08-27 02:15 | NUR ---
VOMITED SMALL AMOUNT OF FLUIDS WITH SOME LIQUIDS IN THE BR. ASSISTED BACK TO BED AND WENT TO SLEEP.
[2019-08-27] MEDS ORDERED: PHENAZOPYRIDINE 100 MG TAB PO SCH (02:30)
[2019-08-27] MEDS: NACL 0.9% 1,000 ML IV SCH ×2 (03:06→17:15)
[2019-08-27 04:00] LABS: CHOL/HDL RATIO 5.7 (1-4.5); FREE T4 (FREE THYROXINE) 1.38 ng/dL (0.76-1.46); PHOSPHORUS 1.4 mg/dL (2.5-4.9); THYROID STIMULATING HORMONE 0.39 uIU/mL (0.34-3.74)
[2019-08-27] MEDS ORDERED: SODIUM PHOSPHATE 15 MMOLE in NACL 0.9% 250 ML IV SCH (05:00)
--- NOTE | 2019-08-27 05:00 | NUR ---
ORDERED SODIUM PHOSPHATE IV, MEDICATION NOT AVAILABLE, NOTIFIED DR. WILHELM REGARDING MEDICATION AVAILABLE, STATED UNDERSTANDING THAT MEDICATION WILL BE ADMINISTERED DURING DAY SHIFT WHEN PHARMACY IS AVAILABLE.
[2019-08-27] MEDS ORDERED: MAG SULF 2000 MG/WATER PREMIX 100 ML IV SCH (05:15)
[2019-08-27] MEDS ORDERED: SODIUM PHOS / POTASSIUM PHOS 1 PKT PDR PO SCH (05:15)
--- NOTE | 2019-08-27 05:26 | NUR ---
MAGNESIUM LEVEL - 1.4, MG RIDER 2 GM IVPB STARTED BY HAMZAH ENG. 1 PACKET NEUTRA-PHOS PO GIVEN.
[2019-08-27] MEDS: PANTOPRAZOLE 40 MG TABEC PO SCH (05:54)
[2019-08-27] MEDS: BLOOD GLUCOSE MONITORING 1 DEV DEV FS SCH ×4 (06:04→20:14)
--- NOTE | 2019-08-27 06:05 | NUR ---
INFORMED DR. WILHELM, PATIENT BS - 341, IF CAN BE COVERED WITH 8 UNITS HUMALOG PER SLIDING SCALE, PATIENT IS NPO. OK TO FOLLOW THE SLIDING SCALE.
[2019-08-27] MEDS: DEXT 5% /NACL 0.9% 1,000 ML IV SCH ×2 (06:20→16:20)
--- NOTE | 2019-08-27 06:55 | NUR ---
STILL SLEEPING COMFORTABLY IN BED. TOLERATED ALL MEDICATIONS GIVEN. CONDITION REMAIN STABLE. WILL ENDORSE TO AM SHIFT NURSE FOR CONTINUITY OF CARE.
[2019-08-27 07:20] LABS: BASOPHILS % (AUTO) 0.2 % (0.0-2.0); EOSINOPHILS % (AUTO) 0.2 % (0.0-4.0); HEMOGLOBIN 9.9 g/dL (12.0-16.0); LYMPHOCYTES # (AUTO) 1.1 K/uL (2.5-16.5); LYMPHOCYTES % (AUTO) 8.8 % (20.5-51.1); MEAN CORPUSCULAR HEMOGLOBIN 28 pg (27-31); MEAN CORPUSCULAR HGB CONC 33 g/dL (33-37); MEAN CORPUSCULAR VOLUME 84.9 fL (80-94); MONOCYTES # (AUTO) 0.9 K/uL (0.8-1.0); NEUTROPHILS # (AUTO) 10.5 K/uL (1.8-7.7); NEUTROPHILS % (AUTO) 83.8 % (42.2-75.2); PLATELET COUNT (AUTO) 252 K/uL (140-450); RED BLOOD CELL COUNT(AUTO) 3.53 MIL/uL (4.20-5.40); RED CELL DISTRIBUTION WIDTH 14.7 % (11.6-13.7); WHITE BLOOD COUNT (AUTO) 12.5 K/uL (4.8-10.8)
[2019-08-27 07:26] LABS: ANION GAP 12.3 (8-16); CARBON DIOXIDE 25.8 mmol/L (21-32); POTASSIUM 4.1 mmol/L (3.5-5.1)
--- NOTE | 2019-08-27 07:34 | NUR ---
PT IS IN BED RESTING AT THIS TIME. NO DISTRESS NOTED. SECOND BAG OF MAGNESIUM IS INFUSING. CALL LIGHT IN REACH.
[2019-08-27 07:37] LABS: CREATININE 1.4 mg/dL (0.6-1.3)
[2019-08-27 08:00] VITALS: BP 104/57
--- NOTE | 2019-08-27 08:23 | NUR ---
PATIENT HAS BEEN SCREENED AND CATEGORIZED MODERATE NUTRITION RISK. PATIENT WILL BE SEEN WITHIN 3-5 DAYS OF ADMISSION. 08/29/19 08/31/[address]
[2019-08-27] MEDS: METOPROLOL 25 MG TAB PO SCH ×2 (08:30→20:23)
[2019-08-27] MEDS: SODIUM PHOS / POTASSIUM PHOS 1 PKT PDR PO SCH ×3 (08:30→16:09)
[2019-08-27] MEDS: LACTOBACILLUS RHAMNOSUS GG 1 EACH CAP PO SCH (08:31)
[2019-08-27] MEDS ORDERED: PIOGLITAZONE 30 MG TAB PO SCH (09:00)
[2019-08-27] MEDS ORDERED: LISINOPRIL 5 MG TAB PO SCH (09:00)
[2019-08-27] MEDS ORDERED: ASPIRIN 81 MG TAB.CHEW PO SCH (09:00)
[2019-08-27] MEDS ORDERED: INSULIN LANTUS 100 UNITS/ML 10 ML VIAL SUBQ SCH ×2 (09:00→19:00)
[2019-08-27] MEDS ORDERED: FUROSEMIDE 40 MG TAB PO SCH (09:00)
[2019-08-27] MEDS ORDERED: PIOGLITAZONE HCL 45 MG PO SCH (09:00)
[2019-08-27] MEDS ORDERED: NON-FORMULARY ITEM (Omeprazole 1 CAP) PO SCH (09:00)
[2019-08-27] MEDS ORDERED: glipiZIDE 10 MG TAB PO SCH (09:00)
--- NOTE | 2019-08-27 09:00 | NUR ---
PT IS IN BED. PT HAD AN EPISODE OF VOMITING. NOTED WITH YELLOW COLOR EMESIS. NO COMPLAINS OF PAIN. BY BEDSIDE. CALL LIGHT IN REACH.
[2019-08-27 09:35] LABS: MAGNESIUM 1.7 mg/dL (1.8-2.4); PHOSPHORUS 2.6 mg/dL (2.5-4.9)
[2019-08-27] MEDS: ONDANSETRON 4 MG/2 ML VIAL IM/IVP PRN ×2 (09:48→22:58)
--- NOTE | 2019-08-27 11:11 | NUR ---
PT IS IN BED. PT HAS NO COMPLAINS OF NAUSEA AND VOMITING. NO COMPLAINS OF PAIN. BY BEDSIDE. CALL LIGHT IN REACH.
[2019-08-27 12:00] VITALS: BP 130/72
[2019-08-27] MEDS ORDERED: KCL 20 MEQ/WATER INJ PREMIX 200 ML IV PRN (13:10)
--- NOTE | 2019-08-27 13:16 | NUR ---
PT WANTED TO EAT REQUESTED DR FULLER. PT IS IN BED HAVING LUNCH AT THIS TIME. FAMILY BY BEDSIDE. CALL LIGHT IN REACH
[2019-08-27 16:00] VITALS: BP 135/51
[2019-08-27] MEDS: ACETAMINOPHEN 325 MG TAB PO PRN (16:09)
[2019-08-27] MEDS ORDERED: PIPERACILLIN/TAZOBACTAM 2.25 GM in DEXTROSE 5% 50 ML IV SCH (18:00)
--- NOTE | 2019-08-27 19:18 | NUR ---
SHIFT REPORT GIVEN TO SHIRT CLEANER NURSE. PT IS IN BED IN STABLE CONDITION. CALL LIGHT IN REACH. Addendum: 08/27/19 at 1957 by Pati Carpenter RN CALL LIGHT WITHIN REACH - REMEINDS HER THE USE OF CALL LIGHT WHENEVER SHE NEEDED HELP / ASSISTANCE SUCH IF SHE WANT TO GO TO BATHROOM - ON SAFETY / FALL PRCAUTION PROTOCOL.
--- NOTE | 2019-08-27 19:18 | NUR ---
RERCIEVED PT. AAOX4 , NID , RA , IV SITE INTACT AND PATENT . NO COMPLAIN MADE AT THIS TIME . POC DISCUSSED AND VERBALIZE UBDERSTANDING - CALL LIGHT WITHIN REACH . WILL CONT. TO MONITOR.
[2019-08-27 20:00] VITALS: BP 110/60
[2019-08-27] MEDS: ATORVASTATIN 20 MG TAB PO SCH (20:22)
--- NOTE | 2019-08-27 20:27 | NUR ---
JOHAN GIVEN SQ - CHICKEN SANDWICH GIVEN - EATS SANDWICH - WILL GIVE HUMALOG AFTERWARDS. HGT 283. Addendum: 08/27/19 at 2029 by Pati Carpenter RN HUMALOG GIVEN ORDERED HGT 283
--- NOTE | 2019-08-27 22:20 | NUR ---
MADE ROUNDS . NO S/S OFR ACUTE DISTRESS NOTED AT THIS TIME , WILL CONT. TO MONITOR ./ CALL LIGHT WITHIN REACH ON FLOOR CASHIER.
--- NOTE | 2019-08-27 22:50 | NUR ---
VOMITED W/ YELLOWISH VOMITUS , MOD. AMOUNT AND C/O OF HEADACHE - WILL MEDICATE -WILL CONT. TO MONITOR - CALL LIGHT WITHIN REACH.
[2019-08-28] VITALS (7 sets, daily range): BP systolic 124–150; BP diastolic 54–90
--- NOTE | 2019-08-28 | NUR ---
MADE ROUNDS , C/O CHILLS - TEMP RE CHECK - 100.4 - WILL MEDICATE FOR FEVER , WILL CONT. TO MONITOR.CALL LIGHT WITHIN REACH.
[2019-08-28] MEDS: ACETAMINOPHEN 325 MG TAB PO PRN ×2 (00:01→20:59)
[2019-08-28] MEDS ORDERED: MEROPENEM 1,000 MG VIAL IV ONE (00:08)
[2019-08-28] MEDS: MEROPENEM 1,000 MG in NACL 0.9% 100 ML IV SCH ×3 (00:13→17:34)
--- NOTE | 2019-08-28 00:20 | NUR ---
S/E BY DR. FISCHER - MADE NEW ORDER AND CARRIED OUT . WILL CONT. TO MONITOR.
--- NOTE | 2019-08-28 02:06 | NUR ---
RE CHECK TEMP. 102F - IVF INFUSING WELL , OFFER ORAL FLD. WILL CONT. TO MONITOR. CALL LIGHT WITHIN REACH.
--- NOTE | 2019-08-28 03:36 | NUR ---
MADE ROUNDS , TEMP RE CHECK - 98.2F , NO S/S OF ACUTE DISTRESS NOTED AT THIS TIME - WILL CONT. TO MONITOR.CALL LIGHT WITHIN REACH.
--- NOTE | 2019-08-28 04:00 | NUR ---
SLEEPING . NO ACUTE DISTRESS NOTED AT THIS TIME - ON AIR CARGO AGENT - SR. WILL CONT. TO MONITOR.
[2019-08-28] MEDS: PANTOPRAZOLE 40 MG TABEC PO SCH (05:57)
--- NOTE | 2019-08-28 06:00 | NUR ---
MADE ROUNDS , NO S/S OF ACUTE DISTRESS NOTED AT THIS TIME , WILL CONT. TO MONITOR. CALL LIGHT WITHIN REACH.
[2019-08-28] MEDS: BLOOD GLUCOSE MONITORING 1 DEV DEV FS SCH ×4 (06:17→21:11)
[2019-08-28] MEDS: INSULIN LISPRO SLIDING SCALE 100 UNITS/ML VIAL SUBQ PRN ×4 (06:37→21:12)
[2019-08-28 07:12] LABS: BASOPHILS # (AUTO) 0.1 K/uL (0.00-0.22); EOSINOPHILS % (AUTO) 0.3 % (0.0-4.0); HEMATOCRIT 29.5 % (36-48); HEMOGLOBIN 9.9 g/dL (12.0-16.0); LYMPHOCYTES # (AUTO) 0.9 K/uL (2.5-16.5); LYMPHOCYTES % (AUTO) 7.6 % (20.5-51.1); MEAN CORPUSCULAR HEMOGLOBIN 28 pg (27-31); MEAN CORPUSCULAR HGB CONC 34 g/dL (33-37); MEAN CORPUSCULAR VOLUME 84.6 fL (80-94); MONOCYTES % (AUTO) 8.5 % (1.7-9.3); NEUTROPHILS # (AUTO) 9.7 K/uL (1.8-7.7); NEUTROPHILS % (AUTO) 82.6 % (42.2-75.2); PLATELET COUNT (AUTO) 266 K/uL (140-450); RED BLOOD CELL COUNT(AUTO) 3.49 MIL/uL (4.20-5.40); RED CELL DISTRIBUTION WIDTH 14.6 % (11.6-13.7); WHITE BLOOD COUNT (AUTO) 11.7 K/uL (4.8-10.8)
[2019-08-28 07:20] LABS: ANION GAP 13.5 (8-16); CARBON DIOXIDE 23.8 mmol/L (21-32); CREATININE 1.4 mg/dL (0.6-1.3); POTASSIUM 4.3 mmol/L (3.5-5.1)
--- NOTE | 2019-08-28 07:20 | NUR ---
ENDORSED TO AM - PT - STABLE - O2 SAT WNL ,ASLEEP AND COMFORTABLE.
--- NOTE | 2019-08-28 07:21 | NUR ---
RECEIVED REPORT FROM LEAD QA ANALYST NURSE. PATIENT LYING DOWN IN BED SLEEPING, AROUSABLE BY VOICE. NO DISTRESS NOTED. DENIES ANY PAIN. RESPIRATIONS EVEN, UNLABORED, ON ROOM AIR. IV SITE INTACT, PATENT, AND INFUSING IVF PER MD ORDERS. AAOX4, CALM, COOPERATIVE, SKIN COLOR APPROPRIATE TO ETHNICITY, WARM TO TOUCH. SKIN INTACT. REVIEWED PLAN OF CARE WITH PATIENT. PATIENT VERBALIZED UNDERSTANDING. SAFETY MEASURES IN PLACE, CALL LIGHT WITHIN REACH. WILL CONTINUE TO MONITOR .
[2019-08-28] MEDS: SODIUM PHOS / POTASSIUM PHOS 1 PKT PDR PO SCH ×3 (08:46→17:32)
[2019-08-28] MEDS: LACTOBACILLUS RHAMNOSUS GG 1 EACH CAP PO SCH (08:48)
[2019-08-28] MEDS: MAGNESIUM OXIDE 400 MG TAB PO SCH (08:48)
[2019-08-28] MEDS: METOPROLOL 25 MG TAB PO SCH ×2 (08:49→20:59)
[2019-08-28] MEDS: INSULIN LANTUS 100 UNITS/ML 10 ML VIAL SUBQ SCH (08:51)
[2019-08-28] MEDS: ONDANSETRON 4 MG/2 ML VIAL IM/IVP PRN (08:52)
[2019-08-28] MEDS: MORPHINE SULFATE 2 MG/ML SYR IVP PRN (08:56)
[2019-08-28] MEDS: NACL 0.9% 1,000 ML IV SCH (09:13)
--- NOTE | 2019-08-28 09:16 | NUR ---
PATIENT COMPLAINS OF ABDOMINAL PAIN AND HEADACHE, MORPHINE GIVEN AT THIS TIME. OTHER SCHEDULED MEDICATIONS DUE GIVEN. WILL CONTINUE TO MONITOR.
--- NOTE | 2019-08-28 12:02 | NUR ---
PATIENT LYING DOWN IN BED. NO DISTRESS NOTED. FAMILY MEMBER AT BEDSIDE. SCHEDULED MEDICATIONS DUE GIVEN. WILL CONTINUE TO MONITOR.
[2019-08-28] MEDS ORDERED: SIMETHICONE 80 MG TAB.CHEW PO PRN (12:40)
[2019-08-28] MEDS ORDERED: guaiFENesin/CODEINE 100/10MG 5 ML UDC PO PRN (12:40)
[2019-08-28] MEDS ORDERED: ONDANSETRON 8 MG in NACL 0.9% 50 ML IVP PRN (12:40)
[2019-08-28] MEDS: CYCLOBENZAPRINE 10 MG TAB PO PRN (14:11)
--- NOTE | 2019-08-28 14:16 | NUR ---
PATIENT COMPLAINS OF NECK PAIN, COUGH, AND ABD PAIN, AND NAUSEA. PRN MEDICATIONS GIVEN AT THIS TIME. AWAITING FOR ZOFRAN DRIP TO BE PREPARED BY PHARMACY. WILL CONTINUE TO MONITOR.
--- NOTE | 2019-08-28 15:46 | NUR ---
PATIENT LYING DOWN IN BED, WITH COMPLAINTS OF NAUSEA. ZOFRAN IV DRIP STARTED INFUSED PER MD ORDERS.
--- NOTE | 2019-08-28 17:51 | NUR ---
PATIENT LYING DOWN IN BED SLEEPING, AROUSABLE BY VOICE. NO DISTRESS NOTED. SCHEDULED MEDICATIONS DUE GIVEN. WILL CONTINUE TO MONITOR.
--- NOTE | 2019-08-28 19:15 | NUR ---
GAVE REPORT TO CLOTH STRETCHER NURSE FOR CONTINUITY OF CARE. PATIENT IN STABLE CONDITION.
--- NOTE | 2019-08-28 19:20 | NUR ---
RECEIVED PT IN STABLE CONDITION FRO AM NURSE. AWAKE,ALERT AND ORIENTED X4. [place]ER SPEAKING. ON TELE MONITOR. NO C/O ANY DISCOMFORT NOR PAIN NOTED AT THIS TIME. AMBULATORY TO THE BATHROOM WITH STANDBY ASSISTANCE. IVF INFUSING WELL ON THE RT WRIST G#22. CLEAR AND PATENT. FAMILY AT BEDSIDE. NO CONCERN AT THIS TIME. BED ON LOW POSITION. FREQ ROUNDS NEEDED. SIDE RAILS UP X2. CALL LIGHT PLACED WITHIN EASY REACH. WILL CONTINUE TO MONITOR.
[2019-08-28] MEDS: ATORVASTATIN 20 MG TAB PO SCH (20:59)
--- NOTE | 2019-08-28 20:59 | NUR ---
TEMP ELEVATED 101.2 ORAL ,COOLING MEASURES DONE AND TYLENOL 650 MG PO GIVEN. WILL CONTINUE TO MONITOR.
--- NOTE | 2019-08-28 21:12 | NUR ---
BLOOD SUGAR WAS CHECKED RESULT 188. INSULIN OVERAGE GIVEN. HS SNACK PROVIDED. WILL CONTINUE TO MONITOR.
--- NOTE | 2019-08-28 22:00 | NUR ---
TEMP RECHECKED RESULT 99.2 ORALLY.
--- NOTE | 2019-08-28 23:00 | NUR ---
DR. ALCALA,RESIDENT MADE AWARE ABOUT THE FEVER EARLIER. NO NEW ORDER MADE.
[2019-08-29 00:30] VITALS: BP 113/58
[2019-08-29] MEDS: MEROPENEM 1,000 MG in NACL 0.9% 100 ML IV SCH ×3 (01:04→16:06)
--- NOTE | 2019-08-29 01:15 | NUR ---
IV ON THE RT WRIST SWOLEN AND INFILTRATED. DISCONTINUED . STARTED A NEW IV ACCESS ON THE LT FA G#22. CLEAR AND PATENT.
--- NOTE | 2019-08-29 02:30 | NUR ---
MADE ROUNDS. PT ASLEEP NO S/S OF ANY DISCOMFORT NOTED.
[2019-08-29] MEDS: NACL 0.9% 1,000 ML IV SCH ×3 (02:35→23:09)
[2019-08-29 04:00] VITALS: BP 143/70
[2019-08-29] MEDS: BLOOD GLUCOSE MONITORING 1 DEV DEV FS SCH ×4 (06:01→20:25)
[2019-08-29] MEDS: INSULIN LISPRO SLIDING SCALE 100 UNITS/ML VIAL SUBQ PRN ×4 (06:03→21:09)
--- NOTE | 2019-08-29 06:03 | NUR ---
BLOOD SUGAR WAS CHECKED RESULT 162. INSULIN COVERAGE GIVEN ORDERED.
[2019-08-29] MEDS: PANTOPRAZOLE 40 MG TABEC PO SCH (06:05)
--- NOTE | 2019-08-29 07:20 | NUR ---
ENDORSED PT IN STABLE CONDITION TO AM NURSE.
--- NOTE | 2019-08-29 07:22 | NUR ---
RECEIVED BEDSIDE REPORT FROM ASSISTANT WINEMAKER NURSE FOR CONTINUITY OF CARE. PT IS RESTING ON BED AT THIS TIME AND AROUSABLE TO VOICE. PT IS AAOX4, SPEAKS SLOVAK AND ABLE TO UNDERSTAND SOME KYRGYZ. RESPIRATION EVEN AND UNLABORED ON RA. DENIED PAIN, SOB, AND DIZZINESS. NO SIGNS OF DISTRESS NOTED. IV ON LFA #22G, CLEAN AND INTACT, INFUSING PER MD ORDER. SKIN CLEAN AND DRY. PT IS CONTINENT AND ABLE TO AMBULATE WITH STEADY GAIT. TELE MONITOR ATTACHED. SAFETY MEASURES IN PLACE. BED IN LOW POSITION AND CALL LIGHT WITHIN REACH. INSTRUCTED PT TO USE THE CALL LIGHT FOR ANY ASSISTANCE AND PT AWARE.
[2019-08-29 07:56] LABS: BASOPHILS # (AUTO) 0.1 K/uL (0.00-0.22); BASOPHILS % (AUTO) 0.7 % (0.0-2.0); EOSINOPHILS # (AUTO) 0.1 K/uL (0-0.4); EOSINOPHILS % (AUTO) 1.1 % (0.0-4.0); HEMATOCRIT 31.1 % (36-48); HEMOGLOBIN 10.6 g/dL (12.0-16.0); LYMPHOCYTES # (AUTO) 0.9 K/uL (2.5-16.5); MEAN CORPUSCULAR HEMOGLOBIN 28 pg (27-31); MEAN CORPUSCULAR HGB CONC 34 g/dL (33-37); MONOCYTES % (AUTO) 8.9 % (1.7-9.3); NEUTROPHILS # (AUTO) 9.1 K/uL (1.8-7.7); PLATELET COUNT (AUTO) 285 K/uL (140-450); RED BLOOD CELL COUNT(AUTO) 3.84 MIL/uL (4.20-5.40); RED CELL DISTRIBUTION WIDTH 14.6 % (11.6-13.7); WHITE BLOOD COUNT (AUTO) 11.2 K/uL (4.8-10.8)
[2019-08-29 08:00] VITALS: BP 127/62
[2019-08-29 08:04] LABS: ANION GAP 12.1 (8-16); CARBON DIOXIDE 26.8 mmol/L (21-32); CREATININE 1.2 mg/dL (0.6-1.3); POTASSIUM 3.9 mmol/L (3.5-5.1)
[2019-08-29] MEDS: SODIUM PHOS / POTASSIUM PHOS 1 PKT PDR PO SCH (08:50)
[2019-08-29] MEDS: METOPROLOL 25 MG TAB PO SCH ×2 (08:51→20:19)
[2019-08-29] MEDS: LACTOBACILLUS RHAMNOSUS GG 1 EACH CAP PO SCH (08:51)
[2019-08-29] MEDS: MAGNESIUM OXIDE 400 MG TAB PO SCH (08:51)
[2019-08-29] MEDS: INSULIN LANTUS 100 UNITS/ML 10 ML VIAL SUBQ SCH (08:53)
--- NOTE | 2019-08-29 08:54 | NUR ---
CHECKED BLOOD GLUCOSE AND RECEIVED 235. CHECKED BP PRIOR TO MEDS ADMINISTRATION, BP 118/59 PULSE 86. ADMINISTERED SCHEDULED MEDS PER MD ORDER, MEDS EDUCATION PROVIDED AND PATIENT SAID OK. PT TOLERATED MEDS WELL. PT AWAKE AND TALKING TO VISITOR BY BEDSIDE. NO SIGNS OF DISTRESS NOTED. TELE MONITOR ATTACHED. SAFETY MEASURES IN PLACE. BED IN LOW POSITION AND CALL LIGHT WITHIN REACH. INSTRUCTED PT TO USE THE CALL LIGHT FOR ANY ASSISTANCE AND PT AWARE.
[2019-08-29 09:03] LABS: MAGNESIUM 1.6 mg/dL (1.8-2.4); PHOSPHORUS 2.9 mg/dL (2.5-4.9)
[2019-08-29 09:14] LABS: NEUTROPHILS % (AUTO) 81.3 % (42.2-75.2)
--- NOTE | 2019-08-29 11:18 | NUR ---
CHECKED ON PATIENT. SHE IS AMBULATING INDEPENDENTLY. PT DID NOT APPEAR IN DISTRESS. PT DENIES PAIN. TELE MONITOR ATTACHED. SAFETY MEASURES IN PLACE. FAMILY AT BEDSIDE.
[2019-08-29 11:41] VITALS: BP 132/69
--- NOTE | 2019-08-29 12:05 | NUR ---
INFORMED DR CARNEY THAT PT'S MAG IS 1.6 FROM AM LAB[address] PER DR CARNEY THAT PT HAS A SCHEDULED DOSE OF 800 MG MAG OXIDE PO IN THE AM AND IT SHOULD BE OK. NO ORDER RECEIVED.
[2019-08-29] MEDS ORDERED: MAGNESIUM HYDROXIDE 2400 MG/30 ML UDC PO PRN (12:15)
[2019-08-29] MEDS ORDERED: BISACODYL 10 MG SUPP RC PRN (12:15)
[2019-08-29] MEDS: CYCLOBENZAPRINE 10 MG TAB PO PRN (12:19)
--- NOTE | 2019-08-29 12:19 | NUR ---
PT RECEIVED HER LUNCH TRAY, ADMINISTERED 4 UNITS OF HUMALOG FOR BLOOD GLUCOSE 220, AND FLEXERIL FOR NECK MUSCLE SORE, MEDS EDUCATION PROVIDED TO PT AND PT SAID OK. PT IS STARTING TO EAT HER LUNCH. FAMILY AT BEDSIDE. TELE MONITOR ATTACHED. NO SIGNS OF DISTRESS NOTED. SAFETY MEASURES IN PLACE.
[2019-08-29] MEDS ORDERED: ALBUTEROL SULFATE/IPRATROPIU 3 ML SOL IH PRN (12:30)
--- NOTE | 2019-08-29 12:31 | NUR ---
ADMINISTERED PRN COLACE AND MILK OF MAGNESIA FOR CONSTIPATION, MEDS ED PROVIDED AND PT SAID OK. PT TOLERATED PO MEDS WELL. PT AWAKE AND EATING LUNCH AT THIS TIME. NO SIGNS OF DISTRESS NOTED. TELE MONITOR ATTACHED. SAFETY MEASURES IN PLACE.
--- NOTE | 2019-08-29 13:16 | NUR ---
HOURLY ROUNDING ON PT. PT IS LAYING IN BED RECEIVING A BREATHING TREATMENT. PT SHOWS NO SIGNS OF DISTRESS. PT DENIES PAIN. TELE MONITOR IN PLACE. SAFETY MEASURES IN PLACE. CALL-LIGHT WITHIN REACH. PT INSTRUCTED TO CALL FOR ASSISTANCE IF NEEDED. WILL CONTINUE TO MONITOR.
--- NOTE | 2019-08-29 13:48 | NUR ---
ADMINISTERED SUPPOSITORY PER MD ORDER FOR CONSTIPATION. MED EDUCATION PROVIDED TO PATIENT. PATIENT STATES UNDERSTANDING. PT TOLERATED WELL. PT IS RESTING IN BED NO SIGNS OF DISTRESS NOTED. TELE MONITOR IN PLACE. SAFETY MEASURES IN PLACE. BED IN LOW POSITION AND CALL LIGHT IN REACH. PT INSTRUCTED TO USE CALL-LIGHT IF NEEDED. WILL CONTINUE TO MONITOR
--- NOTE | 2019-08-29 15:09 | NUR ---
HOURLY ROUNDING. PT LAYING IN BED. NO SIGNS OF DISTRESS NOTED. PT DENIES PAIN. FAMILY IS VISITING AT BEDSIDE. TELE MONITOR IN PLACE AND SAFETY MEASURE IN PLACE. THE BED IS IN THE LOW POSITION AND CALL LIGHT IS WITHIN REACH. WILL CONTINUE TO MONITOR.
--- NOTE | 2019-08-29 15:16 | NUR ---
PT STATES SHE HAD ONE BM S/P SUPPOSITORY. WILL CONTINUE TO MONITOR
[2019-08-29 16:00] VITALS: BP 137/75
--- NOTE | 2019-08-29 17:27 | NUR ---
PT ROUNDING. PT IS SLEEPING. NO SIGNS OF DISTRESS NOTED. PATIENTS RESPIRATION IS EVEN AND LABORED. SAFETY MEASURES IN PLACE. CALL-LIGHT IN REACH AND BED IN LOW POSITION.
--- NOTE | 2019-08-29 17:53 | NUR ---
PT RECEIVED HER DINNER TRAY. ADMINISTERED 4 UNIT OF HUMALOG FOR BLOOD GLUCOSE 207, MED ED PROVIDED, PT SAID OK. PT IS STARTING TO EAT DINNER. NO SIGNS OF DISTRESS NOTED. TELE MONITOR ATTACHED. FAMILY AT BEDSIDE. SAFETY MEASURES IN PLACE.
--- NOTE | 2019-08-29 19:11 | NUR ---
ENDORSED PT AT BEDSIDE TO MEAT DRESSER NURSE FOR CONTINUITY OF CARE. PT AWAKE AND RESTING ON BED. NO SIGNS OF DISTRESS NOTED. TELE MONITOR ATTACHED. PT IS IN STABLE CONDITION.
--- NOTE | 2019-08-29 19:15 | NUR ---
ENDORSEMENT RECEIVED AT BEDSIDE FROM AM SHIFT RN. PATIENT ON BED, AWAKE AND ALERT ORIENTED X4. PATIENT IS ON TELE MONITOR. NO SOB NOTED. NO C/O PAIN/DISCOMFORT. IV LINE AT LFA 22G. INTACT AND PATENT. ABLE TO AMBULATE ON HER OWN. NKA. FULL CODE. SAFETY MEASURES IN PLACE. CALL LIGHT WITHIN REACH. WE'LL CONTINUE TO MONITOR.
[2019-08-29 20:00] VITALS: BP 122/62
[2019-08-29] MEDS: ALBUTEROL SULFATE/IPRATROPIU 3 ML SOL IH SCH (20:07)
[2019-08-29] MEDS ORDERED: LEVOFLOXACIN 500 MG/D5W PREMIX 100 ML IV SCH (20:15)
--- NOTE | 2019-08-29 20:17 | NUR ---
RECEIVED PATIENT ON ROOM AIR, PULSE OX SAT 95%. SCHEDULED BREATHING TREATMENT ADMINISTERED. TOLERATED TX WELL WITHOUT ADVERSE SIDE EFFECTS. PATIENT MADE AWARE OF MEDICATION FREQUENCY AND INSTRUCTED TO CALL NEEDED FOR SOB. NO ACUTE RESPIRATORY DISTRESS NOTED AT THIS TIME. WILL CONTINUE TO MONITOR.
[2019-08-29] MEDS: ATORVASTATIN 20 MG TAB PO SCH (20:18)
[2019-08-29] MEDS: guaiFENesin 600 MG TABER PO SCH (20:20)
--- NOTE | 2019-08-29 21:09 | NUR ---
BLOOD SUGAR WAS CHECKED RESULT 171. INSULIN COVERAGE GIVEN SUBQ.
--- NOTE | 2019-08-29 23:00 | NUR ---
PATIENT SLEEPING. NO DISTRESS NOTED. RESPIRATION EVEN AND UNLABORED. NO PAIN/DISCOMFORT NOTED. SAFETY MEASURES IN PLACE. CALL LIGHT WITHIN REACH. WE'LL CONTINUE TO MONITOR.
[2019-08-30] VITALS: BP 128/60
--- NOTE | 2019-08-30 01:00 | NUR ---
UP TO TH BATHROOM . NO SOB NOTED.
--- NOTE | 2019-08-30 03:00 | NUR ---
PT ASLEEP. NO S/S OF ANY DISCOMFORT/PAIN NOTED. WILL CONTINUE TO MONITOR.
[2019-08-30 04:00] VITALS: BP 155/73
[2019-08-30] MEDS: PANTOPRAZOLE 40 MG TABEC PO SCH (05:32)
[2019-08-30] MEDS: BLOOD GLUCOSE MONITORING 1 DEV DEV FS SCH ×2 (06:08→11:30)
[2019-08-30] MEDS: INSULIN LISPRO SLIDING SCALE 100 UNITS/ML VIAL SUBQ PRN ×2 (06:12→12:32)
--- NOTE | 2019-08-30 06:14 | NUR ---
BLOOD SUGAR THIS AM 238. INSULIN COVERAGE GIVEN.
[2019-08-30] MEDS: ALBUTEROL SULFATE/IPRATROPIU 3 ML SOL IH SCH ×2 (07:12→13:29)
--- NOTE | 2019-08-30 07:22 | NUR ---
ENDORSED PT IN STABLE CONDITION TO NURSE.
--- NOTE | 2019-08-30 07:24 | NUR ---
RECEIVED BEDSIDE REPORT FROM TANK CAR RECONDITIONER NURSE FOR CONTINUITY OF CARE. PT IS RESTING ON BED AT THIS TIME AND AROUSABLE TO VOICE. PT IS AAOX4. SHE IS CURRENTLY RECEIVING A BREATHING TREATMENT. PT SPEAKS CITIZEN OF [place] AND IS ABLE TO UNDERSTAND SOME [place]. RESPIRATION EVEN AND UNLABORED ON ROOM AIR. DENIED PAIN, SOB, AND DIZZINESS. NO SIGNS OF DISTRESS NOTED. IV ON LFA #22G, CLEAN AND INTACT, INFUSING PER MD ORDER. SKIN CLEAN AND DRY. PT IS CONTINENT AND ABLE TO AMBULATE WITH STEADY GAIT. TELE MONITOR ATTACHED. SAFETY MEASURES IN PLACE. BED IN LOW POSITION AND CALL LIGHT WITHIN REACH. INSTRUCTED PT TO USE THE CALL LIGHT FOR ANY ASSISTANCE AND PT AWARE.
[2019-08-30 07:35] LABS: BASOPHILS # (AUTO) 0.1 K/uL (0.00-0.22); BASOPHILS % (AUTO) 0.7 % (0.0-2.0); EOSINOPHILS # (AUTO) 0.1 K/uL (0-0.4); EOSINOPHILS % (AUTO) 1.8 % (0.0-4.0); HEMATOCRIT 28.9 % (36-48); HEMOGLOBIN 10.1 g/dL (12.0-16.0); LYMPHOCYTES # (AUTO) 1.2 K/uL (2.5-16.5); LYMPHOCYTES % (AUTO) 17.1 % (20.5-51.1); MEAN CORPUSCULAR HEMOGLOBIN 28 pg (27-31); MEAN CORPUSCULAR HGB CONC 35 g/dL (33-37); MEAN CORPUSCULAR VOLUME 80.5 fL (80-94); MONOCYTES # (AUTO) 0.9 K/uL (0.8-1.0); MONOCYTES % (AUTO) 13.2 % (1.7-9.3); NEUTROPHILS # (AUTO) 4.8 K/uL (1.8-7.7); NEUTROPHILS % (AUTO) 67.2 % (42.2-75.2); PLATELET COUNT (AUTO) 308 K/uL (140-450); RED BLOOD CELL COUNT(AUTO) 3.59 MIL/uL (4.20-5.40); RED CELL DISTRIBUTION WIDTH 14.4 % (11.6-13.7); WHITE BLOOD COUNT (AUTO) 7.2 K/uL (4.8-10.8)
[2019-08-30 08:00] VITALS: BP 135/63
[2019-08-30 08:00] LABS: ANION GAP 8.2 (8-16); CARBON DIOXIDE 31.1 mmol/L (21-32); CREATININE 1.3 mg/dL (0.6-1.3); POTASSIUM 4.3 mmol/L (3.5-5.1)
[2019-08-30] MEDS: MAGNESIUM OXIDE 400 MG TAB PO SCH (09:07)
[2019-08-30] MEDS: LACTOBACILLUS RHAMNOSUS GG 1 EACH CAP PO SCH (09:08)
[2019-08-30] MEDS: guaiFENesin 600 MG TABER PO SCH (09:08)
[2019-08-30] MEDS: METOPROLOL 25 MG TAB PO SCH (09:08)
[2019-08-30] MEDS: INSULIN LANTUS 100 UNITS/ML 10 ML VIAL SUBQ SCH (09:09)
--- NOTE | 2019-08-30 09:09 | NUR ---
CHECKED BP AND BLOOD GLUCOSE PRIOR TO MEDS ADMINISTRATION, BP 120/66 PULSE 88, BLOOD GLUCOSE 252. ADMINISTERED MEDS PER MD ORDER, MEDS ED PROVIDED TO PT AND PATIENT SAID OK. PT TOLERATED PO MEDS WELL. PT AWAKE AND TALKING ON HER CELLPHONE. DENIED PAIN, SOB, AND DIZZINESS. FAMILY AT BEDSIDE. NO SIGNS OF DISTRESS NOTED. TELE MONITOR ATTACHED. SAFETY MEASURES IN PLACE.
[2019-08-30] MEDS ORDERED: LANC-947 MC (10:55)
[2019-08-30] MEDS ORDERED: BLOO1EAC40 MC (10:55)
[2019-08-30] MEDS ORDERED: INSU100S22 SUBQ (10:55)
[2019-08-30] MEDS ORDERED: SLIDE SUBQ (10:55)
[2019-08-30] MEDS ORDERED: GLUC-805 FS (10:55)
[2019-08-30] MEDS ORDERED: LEVO750T2 PO (10:59)
--- NOTE | 2019-08-30 11:10 | NUR ---
INFORMED PT THAT SHE WILL BE DC HOME TODAY, PT AWARE. PER PT, SHE WANTS FINISH LUNCH AND DC AROUND 1 PM. HER WILL BE TAKE HER HOME. PT AWAKE AND RESTING ON BED AT THIS TIME. NO SIGNS OF DISTRESS NOTED. TELE MONITOR ATTACHED. SAFETY MEASURES IN PLACE.
[2019-08-30 12:02] VITALS: BP 150/75
--- NOTE | 2019-08-30 12:32 | NUR ---
PT RECEIVED HER LUNCH TRAY, ADMINISTERED 6 UNITS OF HUMALOG FOR BLOOD GLUCOSE 251, MED EDUCATION PROVIDED TO PT AND PT SAID OK. PT IS STARTING TO EAT HER LUNCH. FAMILY AT BEDSIDE. TELE MONITOR ATTACHED. NO SIGNS OF DISTRESS NOTED. SAFETY MEASURES IN PLACE.
--- NOTE | 2019-08-30 13:10 | NUR ---
USE [employer] INTERPRETOR SERVICE TO PROVIDE DC INSTRUCTIONS. SPOKE WITH EARNESTINEELIZABETH # [id number] EDUCATED PT ON FOLLOW-UP WITH MD AFTER DC FROM HOSPITAL. SEEK MEDICAL HELP IN CASE OF MEDICAL EMERGENCY, DISEASE MANAGEMENT, MEDICATION REGIMEN, SIDE EFFECTS AND DIET ANSWERED ALL PATIENTS QUESTIONS AND PATIENT VERBALIZED UNDERSTANDING. PROVIDED EDUCATIONAL MATERIAL IN REGARD TO DX IN [place]. PT IS AWARE. E PRESCRIPTION WAS SENT TO PT PREFERRED PHARMACY [facility] IN [place]. PT WAS PROVIDED THE ADDRESS AND PT IS AWARE. REMINDED PT TO TAKE ALL OF HER PERSONAL BELONGINGS HOME. PT IS AWAKE AND STATES THAT SHE WOULD LIKE TO RECEIVE A BREATHING TREATMENT PRIOR TO D/C. PAGED RT AND RT IS AWARE. PT IS AWARE. NO SIGNS OF DISTRESS NOTED.
--- NOTE | 2019-08-30 13:31 | NUR ---
RT AT BEDSIDE PROVIDING PATIENT THE REQUESTED BREATHING TREATMENT. NO SIGNS OF DISTRESS NOTED TELE MONITOR REMOVED AND RETURNED TO DARK ROOM ATTENDANT. SAFETY MEASURES IN PLACE. PT INSTRUCTED TO USE CALL LIGHT
--- NOTE | 2019-08-30 14:00 | NUR ---
PT CHANGED INTO HER OWN CLOTHES. IV CATHETER REMOVED. CATHETER TIP INTACT NO BLEEDING AT IV SITE. ID BADGE REMOVED. PT CHECKED ALL CABINETS AND TOOK ALL BELONGINGS HOME. PT REFUSED PNEUMONIA VACCINE AND FLU VACCINE. EDUCATION PROVIDED. PT WAS ESCORTED VIA WHEELCHAIR THROUGH THE FRONT LOBBY TO HER VEHICLE. PT IS GOING HOME ACCOMPANIED BY . PT IS IN STABLE CONDITION.
== END 2019-08-30 14:00 | disposition home or self-care (01) | DRG 280 ==
LOC: MED 18:43 → MTU 22:42
PROVIDERS: ADMIT General Practice; ATTEND General Practice
DX: I21.A1 Myocardial infarction type 2 (principal); N17.0 Acute kidney failure with tubular necrosis; E43 Unspecified severe protein-calorie malnutrition; N39.0 Urinary tract infection, site not specified; E78.5 Hyperlipidemia, unspecified; I10 Essential (primary) hypertension; K21.9 Gastro-esophageal reflux disease without esophagitis; Z90.49 Acquired absence of other specified parts of digestive tract; Z98.51 Tubal ligation status; E11.65 Type 2 diabetes mellitus with hyperglycemia; Z68.33 Body mass index [BMI] 33.0-33.9, adult; K42.9 Umbilical hernia without obstruction or gangrene; M94.0 Chondrocostal junction syndrome [Tietze]
CPT/HCPCS: 36415; 71045; 71046; 80048; 80053; 80305; 81001; 82150; 82948; 83036; 83605; 83690; 83735; 83880; 84100; 84439; 84443; 84484; 85025; 85610; 85730; 87040; 87081; 87086; 87186; 87804; 93005; 94640; 96361; 96365; 96367; 96375; 99291; J0456; J0696; J1644; J1815; J1956; J2185; J2270; J2405; J2543; J3475; J7030; J7060; J7620

== ENCOUNTER 2022-03-19 17:48 | Emergency (ER) | payer MEDICAID, OTHER ==
[~2022-03-19] VITALS: Ht 157.5 cm; Wt 76.7 kg
[~2022-03-19 17:48] MED LIST changes: +BLOO1EAC40 MC; +FURO-570 PO; -GLIP10TA3 PO; +GLUC-805 FS; -IBUP-2216 PO; +INSU100S22 SUBQ; +LANC-947 MC; -LISI10TA11 PO; -METF100028 PO; +OMEP40EC23 PO; -ONDA8TAB PO; -PIOG45TA10 PO; -RANI150T8 PO; -SACC250C1 PO; -SERT100T1 PO; +SIMV40TA1 PO; +SLIDE SUBQ; -TOPI100T33 PO
[2022-03-19 18:13] VITALS: BP 108/53
[2022-03-19 21:25] LABS: APPEARANCE,URINE CLEAR (CLEAR); BILIRUBIN,URINE NEGATIVE (NEGATIVE); BLOOD, URINE NEGATIVE (NEGATIVE); COLOR,URINE YELLOW (YELLOW); LEUKOCYTE ESTERASE ,URINE NEGATIVE (NEGATIVE); NITRITE, URINE NEGATIVE (NEGATIVE); PH,URINE 5.5 (5.0-9.0); UGLUCOSE 3+ (NEGATIVE)
--- NOTE | 2022-03-19 22:30 | NUR ---
RECEIVED IN BED 12 WITH C/O A/P, BACK PAIN, AND DIARRHEA X 1 MONTH C/O ABDOMINAL PAIN, BACK PAIN AND DIARRHEA X1 MONTH PMH: DM, GASTRITIS, CHOLESTEROL, HTN NKA
[2022-03-19] MEDS: KETOROLAC 30 MG/ML VIAL IM ONE (22:52)
[2022-03-19] MEDS: LORazepam 1 MG TAB PO ONE (22:53)
[2022-03-19] MEDS: ONDANSETRON 4 MG ODT PO ONE (22:53)
[2022-03-19 23:04] LABS: BASOPHILS % (AUTO) 0.6 % (0.0-2.0); EOSINOPHILS # (AUTO) 0.3 K/uL (0-0.4); EOSINOPHILS % (AUTO) 6.8 % (0.0-4.0); HEMATOCRIT 31.9 % (36-48); HEMOGLOBIN 10.5 g/dL (12.0-16.0); LYMPHOCYTES # (AUTO) 1.4 K/uL (2.5-16.5); LYMPHOCYTES % (AUTO) 34.7 % (20.5-51.1); MEAN CORPUSCULAR HEMOGLOBIN 27 pg (27-31); MEAN CORPUSCULAR HGB CONC 33 g/dL (33-37); MEAN CORPUSCULAR VOLUME 81.8 fL (80-94); MONOCYTES # (AUTO) 0.7 K/uL (0.8-1.0); MONOCYTES % (AUTO) 18.5 % (1.7-9.3); NEUTROPHILS # (AUTO) 1.6 K/uL (1.8-7.7); NEUTROPHILS % (AUTO) 39.4 % (42.2-75.2); PLATELET COUNT (AUTO) 212 K/uL (140-450); RED CELL DISTRIBUTION WIDTH 14.2 % (11.6-13.7)
[2022-03-19 23:23] LABS: ANION GAP 16.5 (8-16); CARBON DIOXIDE 23.9 mmol/L (21-32); CREATININE 1.4 mg/dL (0.6-1.3); POTASSIUM 4.4 mmol/L (3.5-5.1); TOTAL BILIRUBIN 0.5 mg/dL (0.0-1.0)
[2022-03-20] MEDS ORDERED: BEN10 PO (00:46)
--- NOTE | 2022-03-20 01:15 | NUR ---
Patient discharged with v/s stable. Written and verbal after care instructions given and explained. Patient alert, oriented and verbalized understanding of instructions. Ambulatory with steady gait. All questions addressed prior to discharge. ID band removed. Patient advised to follow up with PMD. Rx of BENTYL given. Patient educated on indication of medication including possible reaction and side effects. Opportunity to ask questions provided and answered.
== END 2022-03-20 01:15 | disposition home or self-care (01) ==
LOC: MED 17:48
DX: R19.7 Diarrhea, unspecified (principal); R10.84 Generalized abdominal pain; R63.0 Anorexia; E11.9 Type 2 diabetes mellitus without complications; K21.9 Gastro-esophageal reflux disease without esophagitis; F03.90 Unspecified dementia, unspecified severity, without behavioral disturbance, psychotic disturbance, mood disturbance, and anxiety; I10 Essential (primary) hypertension; Z90.49 Acquired absence of other specified parts of digestive tract; Z86.73 Personal history of transient ischemic attack (TIA), and cerebral infarction without residual deficits; Z79.4 Long term (current) use of insulin; Z79.899 Other long term (current) drug therapy
CPT/HCPCS: 36415; 80053; 81003; 83690; 85025; 99283; J1885; Q0162

== ENCOUNTER 2022-03-22 10:43 | Inpatient (IN) | payer MEDICAID ==
[~2022-03-22] VITALS: Ht 157.5 cm; Wt 73.5 kg
[~2022-03-22 10:43] MED LIST changes: +BEN10 PO
[2022-03-22 10:46] VITALS: BP 150/71
--- NOTE | 2022-03-22 13:29 | NUR ---
PT AMBULATED TO ER BED 9
[2022-03-22] MEDS ORDERED: ONDANSETRON 4 MG/2 ML VIAL ONE (13:38)
[2022-03-22] MEDS ORDERED: ONDANSETRON 4 MG/2 ML VIAL IVP ONE ×2 (13:45→18:15)
--- NOTE | 2022-03-22 13:59 | NUR ---
PT C/O GENERALIZED ABDOMINAL PAIN WITH N/V AND DECREASED PO INTAKE X4 DAYS. IV INSERTED TO RIGHT THUMB #22GUAGE. MEDICATED PER ORDER.
[2022-03-22] MEDS ORDERED: METOCLOPRAMIDE 10 MG/2 ML INJ VIAL IVP ONE (14:25)
[2022-03-22] MEDS ORDERED: MORPHINE SULFATE 4 MG/ML SYR IVP ONE (14:25)
[2022-03-22] MEDS ORDERED: NACL 0.9% 1,000 ML IV ONE (14:25)
[2022-03-22 15:20] LABS: BASOPHILS % (AUTO) 0.6 % (0.0-2.0); EOSINOPHILS % (AUTO) 0.7 % (0.0-4.0); HEMATOCRIT 31.6 % (36-48); HEMOGLOBIN 10.6 g/dL (12.0-16.0); LYMPHOCYTES # (AUTO) 1.2 K/uL (2.5-16.5); LYMPHOCYTES % (AUTO) 28.3 % (20.5-51.1); MEAN CORPUSCULAR HEMOGLOBIN 27 pg (27-31); MEAN CORPUSCULAR HGB CONC 33 g/dL (33-37); MEAN CORPUSCULAR VOLUME 81.8 fL (80-94); MONOCYTES # (AUTO) 0.4 K/uL (0.8-1.0); MONOCYTES % (AUTO) 9.4 % (1.7-9.3); NEUTROPHILS # (AUTO) 2.6 K/uL (1.8-7.7); PLATELET COUNT (AUTO) 208 K/uL (140-450); RED BLOOD CELL COUNT(AUTO) 3.87 MIL/uL (4.20-5.40); RED CELL DISTRIBUTION WIDTH 14.3 % (11.6-13.7); WHITE BLOOD COUNT (AUTO) 4.3 K/uL (4.8-10.8)
[2022-03-22 15:49] LABS: ALBUMIN 2.9 g/dL (3.4-5.0); ANION GAP 15.6 (8-16); ASPARTATE AMINOTRANSFERASE 33 U/L (15-37); CHLORIDE 112 mmol/L (98-107); CREATININE 0.8 mg/dL (0.6-1.3); GFR ARICAN-AMERICAN 94 mL/min (>90); GLUCOSE 163 mg/dL (74-106); LIPASE 90 U/L (73-393); POTASSIUM 4.6 mmol/L (3.5-5.1); SODIUM SERUM 148 mmol/L (136-145); THYROID STIMULATING HORMONE < 0.01 uIU/mL (0.34-3.74); TOTAL BILIRUBIN 0.6 mg/dL (0.0-1.0); UREA NITROGEN, BLOOD 25 mg/dL (7-18)
[2022-03-22] MEDS ORDERED: propylthiouraciL 50 MG TAB PO ONE (17:40)
[2022-03-22] MEDS ORDERED: PROPRANOLOL 1 MG/ML VIAL IVP ONE (17:40)
--- NOTE | 2022-03-22 17:43 | NUR ---
PT STACH ON MONITOR. DENIES PAIN AT THIS TIME. TOLERATING PO INTAKE. TO BE ADMITTED TO TELE.
[2022-03-22] MEDS ORDERED: atenoloL 25 MG TAB PO ONE (17:55)
[2022-03-22] MEDS ORDERED: ACETAMINOPHEN EXTRA STRENGTH 500 MG TAB PO ONE (18:40)
[2022-03-22] MEDS ORDERED: MORPHINE SULFATE 2 MG/ML SYR IVP STA (18:40)
[2022-03-22] MEDS ORDERED: KCL 20 MEQ/WATER INJ PREMIX 200 ML IV PRN (19:45)
[2022-03-22] MEDS ORDERED: MAGNESIUM OXIDE 400 MG TAB PO PRN (19:45)
[2022-03-22] MEDS ORDERED: MAG SULF 2000 MG/WATER PREMIX 50 ML IV PRN (19:45)
[2022-03-22] MEDS ORDERED: POTASSIUM CHLORIDE 10 MEQ TABER PO PRN (19:45)
[2022-03-22] MEDS ORDERED: DEXTROSE 50% 50 ML SYR IVP PRN (19:55)
--- NOTE | 2022-03-22 21:00 | NUR ---
C/O NAUSEA, MEDICATED ORDERED
[2022-03-22] MEDS: ONDANSETRON 4 MG/2 ML VIAL IVP PRN (22:06)
[2022-03-22] MEDS: BLOOD GLUCOSE MONITORING 1 DEV DEV FS SCH (22:13)
--- NOTE | 2022-03-23 01:30 | NUR ---
AWAKE, C/O PAIN. MEDICATED ORDERED
[2022-03-23] MEDS: ONDANSETRON 4 MG/2 ML VIAL IVP PRN ×4 (01:41→20:28)
[2022-03-23] MEDS: MORPHINE SULFATE 4 MG/ML SYR IVP PRN ×5 (01:42→20:26)
--- NOTE | 2022-03-23 03:00 | NUR ---
RESTING IN BED WITH EYES CLOSED. RESPIRATIONS REGULAR AND UNLABORED
--- NOTE | 2022-03-23 05:00 | NUR ---
AWAKE, C/O NAUSEA. IS DRY HEAVING. MEDICATED ORDERED
--- NOTE | 2022-03-23 06:18 | NUR ---
IS MOANING AND C/O PAIN. MEDICATED ORDERED
[2022-03-23] MEDS: BLOOD GLUCOSE MONITORING 1 DEV DEV FS SCH ×4 (07:30→20:46)
--- NOTE | 2022-03-23 07:30 | NUR ---
RECEIVED PT IN [facility] 15. C/O 5/10 ABDOMINAL PAIN WITH N/V. PAGED ADMITTING MD FOR FURTHER ORDERS. STACH ON MONITOR. BREATHING UNLABORED. IV INTACT AND PATENT SL.
[2022-03-23 07:35] LABS: BASOPHILS % (AUTO) 0.4 % (0.0-2.0); EOSINOPHILS % (AUTO) 0.8 % (0.0-4.0); HEMATOCRIT 31.1 % (36-48); HEMOGLOBIN 10.3 g/dL (12.0-16.0); LYMPHOCYTES # (AUTO) 1.1 K/uL (2.5-16.5); LYMPHOCYTES % (AUTO) 25.8 % (20.5-51.1); MEAN CORPUSCULAR HEMOGLOBIN 27 pg (27-31); MEAN CORPUSCULAR HGB CONC 33 g/dL (33-37); MEAN CORPUSCULAR VOLUME 81.7 fL (80-94); MONOCYTES # (AUTO) 0.5 K/uL (0.8-1.0); MONOCYTES % (AUTO) 10.4 % (1.7-9.3); NEUTROPHILS # (AUTO) 2.8 K/uL (1.8-7.7); NEUTROPHILS % (AUTO) 62.6 % (42.2-75.2); PLATELET COUNT (AUTO) 220 K/uL (140-450); WHITE BLOOD COUNT (AUTO) 4.4 K/uL (4.8-10.8)
[2022-03-23 07:36] LABS: ANION GAP 17.5 (8-16); CARBON DIOXIDE 21.7 mmol/L (21-32); CREATININE 0.9 mg/dL (0.6-1.3); POTASSIUM 4.2 mmol/L (3.5-5.1)
--- NOTE | 2022-03-23 07:45 | NUR ---
RECEIVED VORB FOR REGLAN 10MG IVPX1 , PT DENIES NAUSEA AT THIS TIME. ADMITTING MD STATES WILL BE IN SHORTLY TO SEE PT IN PERSON FOR FURTHER MEDICATION ORDERS
[2022-03-23] MEDS ORDERED: METOCLOPRAMIDE 10 MG/2 ML INJ VIAL IVP PRN (07:55)
[2022-03-23 08:00] VITALS: BP 179/80
--- NOTE | 2022-03-23 08:00 | NUR ---
PATIENT ARRIVED FROM ER. ABLE TO AMBULATE TO [facility] BED. COMPLAINS OF ABDOMINAL PAIN AND NAUSEA, WITHIN TOLERABLE AT THIS TIME. AAOX4, COOPERATIVE, SKIN INTACT. IV SITE INTACT, PATENT, AND INFUSING IVF PER MD ORDERS. ORIENTED PATIENT TO ROOM AND CALL LIGHT. REVIEWED PLAN OF CARE PLAN WITH PATIENT, VERBALIZED UNDERSTANDING. WILL CONTINUE TO MONITOR.
[2022-03-23] MEDS ORDERED: atenoloL 25 MG TAB PO SCH (09:05)
[2022-03-23] MEDS: ENOXAPARIN 40 MG/0.4 ML SYR SUBQ SCH (09:41)
--- NOTE | 2022-03-23 10:05 | NUR ---
PATIENT HAD VOMIT X1, YELLOWISH, ABOUT 75 ML. ZOFRAN GIVEN AT THIS TIME. OTHER SCHEDULED MEDICATIONS DUE GIVEN. WILL CONTINUE TO MONITOR.
[2022-03-23 12:00] VITALS: BP 158/68
[2022-03-23] MEDS: HYDROcodone/APAP 5/325 MG 1 TAB TAB PO PRN (12:41)
[2022-03-23] MEDS: propylthiouraciL 50 MG TAB PO SCH ×3 (12:41→20:26)
--- NOTE | 2022-03-23 12:44 | NUR ---
COMPLAINS OF ABDOMINAL PAIN, NORCO GIVEN AT THIS TIME. OTHER SCHEDULED MEDICATIONS DUE GIVEN. WILL CONTINUE TO MONITOR.
[2022-03-23] MEDS: NACL 0.9% 1,000 ML IV SCH (14:33)
--- NOTE | 2022-03-23 15:58 | NUR ---
COMPLAINS OF ABD PAIN, MORPHINE GIVEN AT THIS TIME. OTHER SCHEDULED MEDICATIONS DUE GIVEN. WILL CONTINUE TO MONITOR.
[2022-03-23 16:00] VITALS: BP 127/54
--- NOTE | 2022-03-23 19:34 | NUR ---
GAVE REPORT TO EXECUTIVE ADMIN NURSE FOR CONTINUITY OF CARE. PATIENT IN STABLE. CONDITION.
--- NOTE | 2022-03-23 19:40 | NUR ---
RECEIVED BEDSIDE REPORT FROM DAY SHIFT RN FOR CONTINUITY OF CARE. PT IS AWAKE IN BED. PT LOOKS TO BE IN DISCOMFORT. PT IS AAOX4 YI SPEAKER. PT IS ON RA. PT HAS RIGHT DUMB 22 GAUGE AND RIGHT HAND 20 GAUGE. PT IS RUNNING NS 100 CC/HR ON RIGHT DUMB. PT STATES SHE IS IN A LOT OF ABD PAIN. PT HAS BEEN VOMITING. PLAN OF CARE DISCUSSED. WILL CONTINUE TO MONITOR THE PT.
[2022-03-23 20:00] VITALS: BP 105/51
[2022-03-23] MEDS: INSULIN LISPRO SLIDING SCALE 100 UNITS/ML VIAL SUBQ PRN (20:46)
--- NOTE | 2022-03-23 20:48 | NUR ---
SCHEDULE MEDS GIVEN. NO ADVERSE REACTION NOTED. PT WAS GIVEN MORPHINE FOR 10/10 ABD PAIN. GIVEN ZOFRAN FOR N/V. NO OTHER COMPLAINS. WILL CONTINUE TO MONITOR THE PT.
[2022-03-24] VITALS: BP 102/41
--- NOTE | 2022-03-24 00:24 | NUR ---
PICC LINE NURSE IS HERE TO INSERT MIDLINE ON PT. ALL SUPPLIES GATHERED. Addendum: 03/24/22 at 0051 by sJ Wallace RN WRONG PT
--- NOTE | 2022-03-24 00:49 | NUR ---
THERE IS ONLY 2 TABLETS FOR PTU LEFT IN THE ENTIRE HOSPITAL. IT DOES NOT LET ME PULL OUT THOSE 2 TABLETS LEFT. NOT ABLE TO GIVE THE MEDICATION NOW AND THE NEXT DOSE FOR THE SHIFT.
[2022-03-24] MEDS: NACL 0.9% 1,000 ML IV SCH ×2 (00:52→11:16)
[2022-03-24] MEDS: HYDROcodone/APAP 5/325 MG 1 TAB TAB PO PRN ×2 (00:53→21:18)
[2022-03-24] MEDS: ONDANSETRON 4 MG/2 ML VIAL IVP PRN ×3 (00:54→11:17)
[2022-03-24 04:00] VITALS: BP 140/64
[2022-03-24] MEDS: propylthiouraciL 50 MG TAB PO SCH ×2 (04:00)
[2022-03-24] MEDS: MORPHINE SULFATE 4 MG/ML SYR IVP PRN ×2 (04:01→12:51)
--- NOTE | 2022-03-24 04:05 | NUR ---
PT COMPLAIN OF SEVER ABD PAIN. MORPHINE GIVEN. PER MD ORDER. NO OTHER COMPLAINS WILL CONTINUE TO MONITOR THE PT.
[2022-03-24] MEDS: ACETAMINOPHEN 325 MG TAB PO PRN (04:08)
[2022-03-24] MEDS: PROPRANOLOL 20 MG TAB PO SCH ×3 (05:58→17:51)
[2022-03-24 06:49] LABS: BASOPHILS % (AUTO) 0.2 % (0.0-2.0); HEMOGLOBIN 9.7 g/dL (12.0-16.0); LYMPHOCYTES # (AUTO) 1.4 K/uL (2.5-16.5); LYMPHOCYTES % (AUTO) 12.5 % (20.5-51.1); MEAN CORPUSCULAR HEMOGLOBIN 27 pg (27-31); MEAN CORPUSCULAR HGB CONC 32 g/dL (33-37); MEAN CORPUSCULAR VOLUME 82.4 fL (80-94); MONOCYTES # (AUTO) 1.3 K/uL (0.8-1.0); MONOCYTES % (AUTO) 11.1 % (1.7-9.3); NEUTROPHILS # (AUTO) 8.7 K/uL (1.8-7.7); NEUTROPHILS % (AUTO) 76.2 % (42.2-75.2); PLATELET COUNT (AUTO) 235 K/uL (140-450); RED BLOOD CELL COUNT(AUTO) 3.64 MIL/uL (4.20-5.40); RED CELL DISTRIBUTION WIDTH 14.4 % (11.6-13.7); WHITE BLOOD COUNT (AUTO) 11.4 K/uL (4.8-10.8)
[2022-03-24] MEDS: INSULIN LISPRO SLIDING SCALE 100 UNITS/ML VIAL SUBQ PRN ×3 (06:52→18:03)
[2022-03-24] MEDS: BLOOD GLUCOSE MONITORING 1 DEV DEV FS SCH ×4 (06:53→21:14)
--- NOTE | 2022-03-24 07:37 | NUR ---
ENDORSED PT TO DAY SHIFT RN FOR CONTINUITY OF CARE. PT IS STABLE.
[2022-03-24 07:55] LABS: ANION GAP 21.7 (8-16); CARBON DIOXIDE 20.4 mmol/L (21-32); CREATININE 1.6 mg/dL (0.6-1.3); POTASSIUM 4.1 mmol/L (3.5-5.1)
[2022-03-24 08:00] VITALS: BP 140/64
--- NOTE | 2022-03-24 08:36 | NUR ---
PATIENT HAS BEEN SCREENED AND CATEGORIZED HIGH NUTRITION RISK. PATIENT WILL BE SEEN WITHIN 1-2 DAYS OF ADMISSION. 03/23/22-03/24/[address]
[2022-03-24] MEDS: ENOXAPARIN 40 MG/0.4 ML SYR SUBQ SCH (09:00)
[2022-03-24 09:06] LABS: THYROID PEROXIDASE (TPO) AB 12 IU/mL (0-34)
[2022-03-24] MEDS: methIMAzole 5 MG TAB PO SCH (09:20)
[2022-03-24 12:00] VITALS: BP 143/74
[2022-03-24] MEDS: SODIUM BICARBONATE 8.4% 50 MEQ in NACL 0.45% 1,000 ML IV SCH (15:24)
[2022-03-24] MEDS: OSELTAMIVIR PHOSPHATE 75 MG CAP PO SCH ×2 (15:24→21:17)
[2022-03-24 16:00] VITALS: BP 147/70
--- NOTE | 2022-03-24 16:03 | NUR ---
03/24/2022 RD INITIAL ASSESSMENT COMPLETED. PLEASE REFER TO NUTRITION ASSESSMENT UNDER CARE ACTIVITY FOR ESTIMATED NUTRITIONAL NEEDS. 1.CONTINUE CCHO 60 GRAMS DIET. 2.MONITOR GI SYMPTOMS 3.RD TO FOLLOW-UP IN 2-3 DAYS PATIENT IS HIGH RISK. FRANSISCO BACON, RD
--- NOTE | 2022-03-24 19:30 | NUR ---
RECEIVED BEDSIDE REPORT FROM DAY SHIFT RN FOR CONTINUITY OF CARE. PT IS AWAKE IN BED. PT IS AAOX4 [place] SPEAKER. PT IS ON RA. PT HAS RIGHT DUMB 22 GAUGE AND RIGHT HAND 20 GAUGE. PT IS RUNNING NS 100 CC/HR ON RIGHT DUMB. PLAN OF CARE DISCUSSED. WILL CONTINUE TO MONITOR THE PT. Addendum: 03/24/22 at 2056 by Js Wallace RN PT IS ON BICARD 8.4%. NS 0.45% 80 CC/HR.
[2022-03-24 20:00] VITALS: BP 102/76
--- NOTE | 2022-03-24 20:08 | NUR ---
MEDICATED PATIENT FOR PAIN X1 THIS SHIFT, PATIENT HAS VERY LOW APPETITE AND BARELY TOUCHED SERVED FOOD TRAYS. SODIUM LEVEL HIGH AND IVF CHANGED. NO FORTHER CHANGE IN CONDITION. REPORT WAS GIVEN TO THE ON COMING SHIFT FOR CONTINUED EXPERT CARE.
--- NOTE | 2022-03-24 20:51 | NUR ---
PT JUST LEFT FOR CT SCAN. PT IS STABLE.
--- NOTE | 2022-03-24 21:27 | NUR ---
SCHEDULE MEDS GIVEN. NO ADVERSE REACTION NOTED. WILL CONTINUE TO MONITOR THE PT.
--- NOTE | 2022-03-24 22:48 | NUR ---
PT PULLED OUT IV. CATHETER INTACT. NEW IV INSERTED ON LEFT HAND 24 GAUGE. PATENT AND INTACT.
[2022-03-25] VITALS: BP 125/62
--- NOTE | 2022-03-25 | NUR ---
LAB CALLED WITH PT CRITICAL VALUE OF TROP 112. NOTIFIED PORT TRAFFIC MANAGER DOCTOR . WAITING FOR REPLY.
[2022-03-25] MEDS: PROPRANOLOL 20 MG TAB PO SCH ×4 (00:19→16:59)
--- NOTE | 2022-03-25 00:25 | NUR ---
SCHEDULE MED GIVE. NO ADVERSE REACTION NOTED. DR. WALTER REPLIES. NO NEW ORDERS. WILL CONTINUE TO MONITOR THE PT.
[2022-03-25 01:33] LABS: APPEARANCE,URINE CLEAR (CLEAR); BILIRUBIN,URINE 1+ (NEGATIVE); BLOOD, URINE NEGATIVE (NEGATIVE); COLOR,URINE YELLOW (YELLOW); LEUKOCYTE ESTERASE ,URINE TRACE (NEGATIVE); NITRITE, URINE NEGATIVE (NEGATIVE); UGLUCOSE 2+ (NEGATIVE)
[2022-03-25 01:55] LABS: RBC,URINE 11-20 (MOD) /HPF (0-5); YEAST,URINE Few /HPF (None Seen)
--- NOTE | 2022-03-25 01:55 | NUR ---
OBSERVED PT. PT IS SLEEPING COMFORTABLY IN BED. PT NOT IN ANY ACUTE DISTRESS. VISIBLE CHEST RISE AND FALL. CALL LIGHT WITHIN REACH. ALL SAFETY MEASURES TAKEN. WILL CONTINUE TO MONITOR THE PT.
[2022-03-25 01:56] LABS: BARBITURATE, URINE NEGATIVE ng/ml (NEG <=200); BENZODIAZEPINE, URINE NEGATIVE ng/mL (NEG <=200); CANNABINOID, URINE NEGATIVE ng/mL (NEG <=50); COCAINE, URINE NEGATIVE ng/mL (NEG <=300); OPIATE, URINE POSITIVE ng/mL (NEG <=2000); PHENCYCLIDINE SCREEN,URINE NEGATIVE ng/mL (NEG <=25)
[2022-03-25 04:00] VITALS: BP 121/63
--- NOTE | 2022-03-25 04:05 | NUR ---
PT OBSERVED. PT IS AWAKE. PT NOT IN ANY ACUTE DISTRESS. BREATHING EVEN AND UNLABORED. CALL LIGHT WITHIN REACH.
[2022-03-25] MEDS: SODIUM BICARBONATE 8.4% 50 MEQ in NACL 0.45% 1,000 ML IV SCH (04:08)
[2022-03-25] MEDS: MORPHINE SULFATE 4 MG/ML SYR IVP PRN (06:14)
[2022-03-25 06:59] LABS: ANION GAP 17.2 (8-16); CARBON DIOXIDE 24.1 mmol/L (21-32); CREATININE 1.3 mg/dL (0.6-1.3); POTASSIUM 4.3 mmol/L (3.5-5.1)
--- NOTE | 2022-03-25 07:20 | NUR ---
ENDORSED PT TO DAY SHIFT RN FOR CONTINUITY OF CARE. PT IS STABLE.
[2022-03-25] MEDS: BLOOD GLUCOSE MONITORING 1 DEV DEV FS SCH ×4 (07:30→21:56)
[2022-03-25 07:35] LABS: BASOPHILS % (AUTO) 0.2 % (0.0-2.0); EOSINOPHILS % (AUTO) 0.1 % (0.0-4.0); HEMATOCRIT 31.9 % (36-48); HEMOGLOBIN 10.6 g/dL (12.0-16.0); LYMPHOCYTES # (AUTO) 1.3 K/uL (2.5-16.5); LYMPHOCYTES % (AUTO) 15.1 % (20.5-51.1); MEAN CORPUSCULAR HEMOGLOBIN 27 pg (27-31); MEAN CORPUSCULAR HGB CONC 33 g/dL (33-37); MEAN CORPUSCULAR VOLUME 82.8 fL (80-94); MONOCYTES # (AUTO) 0.7 K/uL (0.8-1.0); MONOCYTES % (AUTO) 7.8 % (1.7-9.3); NEUTROPHILS # (AUTO) 6.6 K/uL (1.8-7.7); NEUTROPHILS % (AUTO) 76.8 % (42.2-75.2); PLATELET COUNT (AUTO) 237 K/uL (140-450); RED BLOOD CELL COUNT(AUTO) 3.85 MIL/uL (4.20-5.40); RED CELL DISTRIBUTION WIDTH 14.1 % (11.6-13.7); WHITE BLOOD COUNT (AUTO) 8.7 K/uL (4.8-10.8)
[2022-03-25] MEDS: methIMAzole 5 MG TAB PO SCH (08:30)
[2022-03-25] MEDS: OSELTAMIVIR PHOSPHATE 75 MG CAP PO SCH ×2 (08:30→21:43)
[2022-03-25] MEDS: ENOXAPARIN 40 MG/0.4 ML SYR SUBQ SCH (08:32)
[2022-03-25] MEDS ORDERED: MAGNESIUM OXIDE 400 MG TAB PO SCH (10:00)
--- NOTE | 2022-03-25 10:41 | NUR ---
Patient afghan speaking only. AxOx4. lab called for critical value BUn 62 and trop 76. MDs already aware of patient's labs. On Carb control diet. AM BS 114. No insulin coverage needed. Bicarb drip still running at 80cc/hr.
[2022-03-25] MEDS: ACETAMINOPHEN 325 MG TAB PO PRN (11:52)
--- NOTE | 2022-03-25 11:53 | NUR ---
Tylenol PRN given for headache. combination technician doing ECHO.
[2022-03-25 13:52] VITALS: BP 138/60
[2022-03-25] MEDS ORDERED: KETOROLAC 15 MG/ML VIAL IVP SCH (16:45)
[2022-03-25 16:53] VITALS: BP 156/70
[2022-03-25] MEDS: LACTATED RINGERS 1,000 ML IV SCH (17:00)
[2022-03-25] MEDS: CHOLESTYRAMINE 4 GM/9 GM PKT PO SCH ×2 (17:56→21:43)
--- NOTE | 2022-03-25 18:35 | NUR ---
Torodol given for abdominal pain. Patient having poor appetite.
--- NOTE | 2022-03-25 19:25 | NUR ---
RECEIVED PATIENT FROM MORNING SHIFT NURSE. PATIENT AAOX4. [place] SPEAKING. ON ROOM AIR. NO SOB NOTED. RESPIRATION EVEN UNLABORED. IVF LR AT 75 MLS/HR INFUSING ON THE LEFT HAND. NO COMPLAINTS OF PAIN AT THIS TIME. ALL SAFETY MEASURES ARE IN PLACE. CALL LIGHT WITHIN REACH. WILL CONTINUE TO MONITOR.
[2022-03-25 20:00] VITALS: BP 136/54
--- NOTE | 2022-03-25 21:43 | NUR ---
ADMINISTERED SCHEDULED MEDICATIONS PER MD ORDER.
[2022-03-26] VITALS: BP 128/60
--- NOTE | 2022-03-26 00:10 | NUR ---
ANSWERED CALL LIGHT NEEDS ATTENDED TO.
[2022-03-26] MEDS: PROPRANOLOL 20 MG TAB PO SCH ×4 (02:56→17:48)
--- NOTE | 2022-03-26 03:17 | NUR ---
PATIENT AWAKE, BREATHING NORMAL WITH SYMMETRICAL RISE AND FALL OF CHEST. CALL LIGHT WITHIN REACH.
[2022-03-26 04:00] VITALS: BP 138/60
[2022-03-26] MEDS: LACTATED RINGERS 1,000 ML IV SCH ×2 (06:13→19:15)
[2022-03-26] MEDS: BLOOD GLUCOSE MONITORING 1 DEV DEV FS SCH ×4 (06:39→21:50)
--- NOTE | 2022-03-26 06:40 | NUR ---
BLOOD SUGAR CHECK WAS 147 NO INSULIN COVERAGE NEEDED.
[2022-03-26 07:13] LABS: BASOPHILS % (AUTO) 0.4 % (0.0-2.0); EOSINOPHILS % (AUTO) 0.4 % (0.0-4.0); HEMATOCRIT 31.3 % (36-48); HEMOGLOBIN 10.5 g/dL (12.0-16.0); LYMPHOCYTES % (AUTO) 17.2 % (20.5-51.1); MEAN CORPUSCULAR HEMOGLOBIN 27 pg (27-31); MEAN CORPUSCULAR HGB CONC 34 g/dL (33-37); MEAN CORPUSCULAR VOLUME 81.4 fL (80-94); MONOCYTES # (AUTO) 0.5 K/uL (0.8-1.0); MONOCYTES % (AUTO) 8.1 % (1.7-9.3); NEUTROPHILS # (AUTO) 4.4 K/uL (1.8-7.7); NEUTROPHILS % (AUTO) 73.9 % (42.2-75.2); PLATELET COUNT (AUTO) 225 K/uL (140-450); RED BLOOD CELL COUNT(AUTO) 3.85 MIL/uL (4.20-5.40); RED CELL DISTRIBUTION WIDTH 13.7 % (11.6-13.7); WHITE BLOOD COUNT (AUTO) 5.9 K/uL (4.8-10.8)
--- NOTE | 2022-03-26 07:18 | NUR ---
BEDSIDE REPORT GIVEN TO DAY SHIFT NURSE FOR CONTINUITY OF CARE. V/S WITHIN NORMAL LIMITS.
[2022-03-26 07:25] LABS: ANION GAP 18.2 (8-16); CARBON DIOXIDE 22.9 mmol/L (21-32); POTASSIUM 4.1 mmol/L (3.5-5.1)
[2022-03-26 07:30] LABS: FREE T4 (FREE THYROXINE) 2.53 ng/dL (0.76-1.46); THYROID STIMULATING HORMONE < 0.01 uIU/mL (0.34-3.74)
[2022-03-26 08:00] VITALS: BP 158/71
[2022-03-26] MEDS: methIMAzole 5 MG TAB PO SCH ×2 (09:00→21:55)
[2022-03-26] MEDS: CHOLESTYRAMINE 4 GM/9 GM PKT PO SCH ×4 (09:00→21:54)
[2022-03-26] MEDS: ENOXAPARIN 40 MG/0.4 ML SYR SUBQ SCH (09:00)
[2022-03-26] MEDS: OSELTAMIVIR PHOSPHATE 75 MG CAP PO SCH ×2 (09:00→21:56)
[2022-03-26] MEDS ORDERED: LACTULOSE 20 GM/30 ML UDC PO SCH (11:35)
[2022-03-26 12:00] VITALS: BP 153/67
[2022-03-26 16:00] VITALS: BP 193/93
[2022-03-26] MEDS ORDERED: HYDROCORTISONE NA SUCC 100 MG/2 ML VIAL IV SCH (16:00)
--- NOTE | 2022-03-26 16:40 | NUR ---
P.T. NOTES P.T. EVAL COMPLETED; REFER TO EVAL FOR DETAILS.
[2022-03-26] MEDS ORDERED: ONDANSETRON 4 MG/2 ML VIAL IVP PRN (17:15)
[2022-03-26] MEDS: INSULIN LISPRO SLIDING SCALE 100 UNITS/ML VIAL SUBQ PRN ×2 (17:46→22:23)
--- NOTE | 2022-03-26 18:41 | NUR ---
COMMUNITY ADMINISTRATOR REPORTED BP OF 193/93, PROVIDER INFORMED, NO NEW ORDERS ADDED. INFORMED PROVIDER OF NAUSEA/VOMITING, ONE TIME ORDER FOR REGLAN GIVEN
--- NOTE | 2022-03-26 19:20 | NUR ---
RECEIVED PATIENT FROM DAY SHIFT NURSE. PATIENT AWAKE , ALERT RESTING IN BED COMFORTABLY ON ROOM AIR. AMBULATORY WITH ASSIST. IVF LR INFUSING AT 75 MLS/HR ON THE LEFT HAND. NO ACUTE DISTRESS NOTED. RESPIRATION REGULAR NON LABORED. SAFETY MEASURES IN PLACE. CALL LIGHT WITHIN REACH. ALL NEEDS MET AT THIS TIME.
[2022-03-26 20:00] VITALS: BP 162/79
--- NOTE | 2022-03-26 21:54 | NUR ---
ALL 2100 SCHEDULED MEDICATIONS ADMINISTERED ORDERED.
[2022-03-26] MEDS: SENNA 8.6 MG TAB PO SCH (21:56)
[2022-03-27] VITALS: BP 162/76
[2022-03-27] MEDS: PROPRANOLOL 20 MG TAB PO SCH ×3 (00:20→12:32)
[2022-03-27 04:00] VITALS: BP 146/59
--- NOTE | 2022-03-27 06:05 | NUR ---
PATIENT IV INFILTRATED. STARTED A NEW PERIPHERAL IV LINE ON THE RIGHT HAND WITH GOOD RETURN OF BLOOD. TOLERATED WELL.
[2022-03-27] MEDS: BLOOD GLUCOSE MONITORING 1 DEV DEV FS SCH ×2 (06:51→11:30)
[2022-03-27 07:07] LABS: BASOPHILS % (AUTO) 0.2 % (0.0-2.0); EOSINOPHILS % (AUTO) 0.6 % (0.0-4.0); HEMATOCRIT 30.5 % (36-48); HEMOGLOBIN 10.4 g/dL (12.0-16.0); LYMPHOCYTES # (AUTO) 1.3 K/uL (2.5-16.5); LYMPHOCYTES % (AUTO) 21.5 % (20.5-51.1); MEAN CORPUSCULAR HEMOGLOBIN 27 pg (27-31); MEAN CORPUSCULAR HGB CONC 34 g/dL (33-37); MEAN CORPUSCULAR VOLUME 80.3 fL (80-94); MONOCYTES # (AUTO) 0.7 K/uL (0.8-1.0); MONOCYTES % (AUTO) 11.1 % (1.7-9.3); NEUTROPHILS # (AUTO) 4.2 K/uL (1.8-7.7); NEUTROPHILS % (AUTO) 66.6 % (42.2-75.2); PLATELET COUNT (AUTO) 207 K/uL (140-450); RED CELL DISTRIBUTION WIDTH 13.4 % (11.6-13.7); WHITE BLOOD COUNT (AUTO) 6.3 K/uL (4.8-10.8)
--- NOTE | 2022-03-27 07:25 | NUR ---
PATIENT STABLE. ENDORSED PATIENT TO DAY SHIFT NURSE FOR CONTINUITY OF CARE.
[2022-03-27 07:26] LABS: ANION GAP 14.4 (8-16); CARBON DIOXIDE 25.1 mmol/L (21-32); CREATININE 0.8 mg/dL (0.6-1.3); POTASSIUM 3.5 mmol/L (3.5-5.1)
--- NOTE | 2022-03-27 07:26 | NUR ---
RECEIVED REPORT FROM FINANCIAL SERVICES ASSOCIATE NURSE. PATIENT LYING DOWN IN BED, NO DISTRESS NOTED. ABDOMINAL PAIN WITHIN TOLERABLE AT THIS TIME. AAOX4, SKIN INTACT, ABLE TO AMBULATE INDEPENDENTLY. IV SITE INTACT, PATENT, AND INFUSING IVF PER MD ORDERS. REVIEWED PLAN OF CARE WITH PATIENT. VERBALIZED UNDERSTANDING. SAFETY MEASURES IN PLACE, CALL LIGHT WITHIN REACH. WILL CONTINUE TO MONITOR.
[2022-03-27 08:00] VITALS: BP 159/64
[2022-03-27] MEDS ORDERED: ATORVASTATIN 20 MG TAB PO SCH (09:00)
[2022-03-27] MEDS ORDERED: ECOTRIN 81 MG TABEC PO SCH (09:00)
[2022-03-27] MEDS ORDERED: PANTOPRAZOLE 40 MG TABEC PO SCH (09:00)
[2022-03-27] MEDS: ENOXAPARIN 40 MG/0.4 ML SYR SUBQ SCH (09:10)
[2022-03-27] MEDS: SENNA 8.6 MG TAB PO SCH (09:11)
[2022-03-27] MEDS: OSELTAMIVIR PHOSPHATE 75 MG CAP PO SCH (09:11)
[2022-03-27] MEDS: methIMAzole 5 MG TAB PO SCH (09:11)
[2022-03-27] MEDS: CHOLESTYRAMINE 4 GM/9 GM PKT PO SCH ×2 (09:12→12:42)
[2022-03-27] MEDS: LACTATED RINGERS 1,000 ML IV SCH (09:25)
[2022-03-27] MEDS: MORPHINE SULFATE 4 MG/ML SYR IVP PRN (09:25)
--- NOTE | 2022-03-27 09:26 | NUR ---
COMPLAINS OF SEVERE ABDOMINAL PAIN, MORPHINE GIVEN AT THIS TIME. OTHER SCHEDULED MEDICATIONS DUE GIVEN. WILL CONTINUE TO MONITOR.
[2022-03-27] MEDS ORDERED: QUEPKT PO (10:56)
[2022-03-27] MEDS ORDERED: SENN-74 PO (10:56)
[2022-03-27] MEDS ORDERED: TAP5 PO (10:56)
[2022-03-27] MEDS ORDERED: PROP20TA29 PO (10:56)
[2022-03-27] MEDS ORDERED: ATOR20TA40 PO (10:56)
[2022-03-27] MEDS ORDERED: ACET-9525 PO (10:56)
[2022-03-27] MEDS ORDERED: ASPI-1856 PO (10:56)
[2022-03-27] MEDS ORDERED: MAG SULF 2000 MG/WATER PREMIX 50 ML IV SCH (11:00)
[2022-03-27] MEDS ORDERED: POTASSIUM CHLORIDE 10 MEQ TABER PO SCH (11:00)
--- NOTE | 2022-03-27 11:32 | NUR ---
SCHEDULED MEDICATIONS DUE GIVEN. WILL CONTINUE TO MONITOR.
[2022-03-27 12:00] VITALS: BP 157/67
--- NOTE | 2022-03-27 12:32 | NUR ---
SCHEDULED MEDICATIONS DUE GIVEN. WILL CONTINUE TO MONITOR.
--- NOTE | 2022-03-27 12:37 | NUR ---
VOMIT X 1, ZOFRAN PRN IVP GIVEN AT THIS TIME.
--- NOTE | 2022-03-27 14:30 | NUR ---
DISCHARGE INSTRUCTIONS PROVIDED TO PATIENT IN PREFERRED LANGUAGE OF IRISH, USING PAGINATOR ID # [id number]. INSTRUCTIONS ON NEW/CHANGED MEDICATIONS REGIMEN, SIDE EFFECTS, FOLLOW-UP WITH PCP AND AUTOMOTIVE SALES ASSOCIATE PROVIDED. ANSWERED ALL OF PATIENT'S QUESTIONS REGARDING DISCHARGE. PATIENT'S AT LOBBY READY TO TAKE PATIENT HOME. ESCORTED PATIENT DOWN TO LOBBY VIA WHEELCHAIR. PATIENT DISCHARGED AT THIS TIME IN STABLE CONDITION.
[2022-03-27] MEDS ORDERED: ONDA-188 PO (15:00)
== END 2022-03-27 15:41 | disposition home or self-care (01) | DRG 427 ==
LOC: MED 10:43 → MTU 19:54
PROVIDERS: ADMIT Internal Medicine; ATTEND Internal Medicine
DX: E05.80 Other thyrotoxicosis without thyrotoxic crisis or storm (principal); E87.0 Hyperosmolality and hypernatremia; N17.9 Acute kidney failure, unspecified; E44.1 Mild protein-calorie malnutrition; E87.2 Acidosis; E83.51 Hypocalcemia; J98.11 Atelectasis; J10.1 Influenza due to other identified influenza virus with other respiratory manifestations; R00.0 Tachycardia, unspecified; K21.9 Gastro-esophageal reflux disease without esophagitis; E87.8 Other disorders of electrolyte and fluid balance, not elsewhere classified; E11.9 Type 2 diabetes mellitus without complications; I10 Essential (primary) hypertension; F03.90 Unspecified dementia, unspecified severity, without behavioral disturbance, psychotic disturbance, mood disturbance, and anxiety; E03.9 Hypothyroidism, unspecified; K59.00 Constipation, unspecified; E86.9 Volume depletion, unspecified; Z20.822 Contact with and (suspected) exposure to COVID-19; E78.5 Hyperlipidemia, unspecified; Z90.49 Acquired absence of other specified parts of digestive tract; Z86.73 Personal history of transient ischemic attack (TIA), and cerebral infarction without residual deficits; Z83.3 Family history of diabetes mellitus; Z79.82 Long term (current) use of aspirin; Z79.899 Other long term (current) drug therapy
CPT/HCPCS: 36415; 70450; 71045; 80048; 80053; 80305; 81001; 82803; 82948; 83036; 83605; 83690; 83735; 83935; 84300; 84439; 84443; 84479; 84484; 85025; 86376; 86800; 87040; 87081; 87086; 93005; 96374; 96375; 96376; 97163-GP; 99291; J1650; J1720; J1800; J1815; J1885; J2270; J2405; J2765; J3475; J3490

== ENCOUNTER 2022-09-16 16:38 | Emergency (ER) | payer MEDICAID ==
[~2022-09-16] VITALS: Ht 160 cm; Wt 79.4 kg
[~2022-09-16 16:38] MED LIST changes: +ACET-9525 PO; +ASPI-1856 PO; +ATOR20TA40 PO; -BEN10 PO; -FURO-570 PO; -LEVO750T2 PO; +ONDA-188 PO; +PROP20TA29 PO; +SENN-74 PO; -SIMV40TA1 PO; +TAP5 PO
[2022-09-16 16:48] VITALS: BP 171/75
[2022-09-16] MEDS ORDERED: KETOROLAC 15 MG/ML VIAL IVP ONE (17:25)
[2022-09-16] MEDS ORDERED: diphenhydrAMINE 50 MG/ML VIAL IVP ONE (17:25)
[2022-09-16] MEDS ORDERED: HALOPERIDOL IM 5 MG/ML VIAL IVP ONE (17:25)
[2022-09-16] MEDS ORDERED: NACL 0.9% 1,000 ML IV ONE ×3 (17:25→20:40)
[2022-09-16 17:39] LABS: BASOPHILS % (AUTO) 0.4 % (0.0-2.0); EOSINOPHILS % (AUTO) 0.2 % (0.0-4.0); HEMATOCRIT 33.4 % (36-48); HEMOGLOBIN 11.3 g/dL (12.0-16.0); LYMPHOCYTES # (AUTO) 0.7 K/uL (2.5-16.5); LYMPHOCYTES % (AUTO) 13.6 % (20.5-51.1); MEAN CORPUSCULAR HEMOGLOBIN 28 pg (27-31); MEAN CORPUSCULAR HGB CONC 34 g/dL (33-37); MEAN CORPUSCULAR VOLUME 83.1 fL (80-94); MONOCYTES # (AUTO) 0.2 K/uL (0.8-1.0); MONOCYTES % (AUTO) 4.3 % (1.7-9.3); NEUTROPHILS # (AUTO) 4.2 K/uL (1.8-7.7); NEUTROPHILS % (AUTO) 81.5 % (42.2-75.2); PLATELET COUNT (AUTO) 257 K/uL (140-450); RED BLOOD CELL COUNT(AUTO) 4.02 MIL/uL (4.20-5.40); RED CELL DISTRIBUTION WIDTH 12.8 % (11.6-13.7); WHITE BLOOD COUNT (AUTO) 5.2 K/uL (4.8-10.8)
[2022-09-16] MEDS ORDERED: METOCLOPRAMIDE 10 MG/2 ML INJ VIAL IVP ONE (17:45)
--- NOTE | 2022-09-16 17:47 | NUR ---
ASSUMED PATIENT CARE, NURSING ASSESSMENT COMPLETED. SEEN AND EVALUATED BY GRAY BOYD COMPLETED.
[2022-09-16 17:53] LABS: ALBUMIN 3.7 g/dL (3.4-5.0); ANION GAP 16.1 (8-16); CARBON DIOXIDE 24.8 mmol/L (21-32); CREATININE 0.9 mg/dL (0.6-1.3); POTASSIUM 3.9 mmol/L (3.5-5.1); TOTAL BILIRUBIN 0.6 mg/dL (0.0-1.0)
[2022-09-16] MEDS ORDERED: ALUMINUM HYD/MAG/SIMETHICONE 30 ML UDC PO ONE (18:35)
[2022-09-16] MEDS ORDERED: MAGNESIUM HYDROXIDE 2400 MG/30 ML UDC ONE (18:37)
[2022-09-16 19:57] LABS: APPEARANCE,URINE CLEAR (CLEAR); BILIRUBIN,URINE NEGATIVE (NEGATIVE); BLOOD, URINE TRACE-I (NEGATIVE); COLOR,URINE YELLOW (YELLOW); LEUKOCYTE ESTERASE ,URINE NEGATIVE (NEGATIVE); NITRITE, URINE NEGATIVE (NEGATIVE); UGLUCOSE 3+ (NEGATIVE)
[2022-09-16 20:22] LABS: RBC,URINE 0-5 /HPF (0-5); WBC,URINE NONE SEEN /HPF (0-5)
--- NOTE | 2022-09-16 20:30 | NUR ---
ERMD by bedside evaluating patient
--- NOTE | 2022-09-16 20:49 | NUR ---
Note carly in EDM - 09/16/22 at 2058 by [email or web address] Patient discharged with v/s stable. Written and verbal after care instructions given and explained. New Rx of tylenol, proventil, and prednisone Patient verbalized understanding. Ambulatory with steady gait. All questions addressed prior to discharge. Advised to follow up with PMD.
--- NOTE | 2022-09-16 21:08 | NUR ---
Pt noted restless, states that she feels anxious. ERMD made aware and orders received
[2022-09-16] MEDS ORDERED: LORazepam 2 MG/ML VIAL IVP ONE (21:15)
--- NOTE | 2022-09-16 22:32 | NUR ---
Pt noted resting comfortably at this time no c/o anxiety. pt continues to be noted tachycardic, denies chest pain
[2022-09-16] MEDS ORDERED: ACET-10509 PO (23:02)
[2022-09-16] MEDS ORDERED: ONDA-188 PO (23:02)
--- NOTE | 2022-09-16 23:24 | NUR ---
Pt oral temp 99.7. Attempted to collect rectal temperature for more accurate temp d/t tachycardia, pt refused.
[2022-09-16 23:36] LABS: BARBITURATE, URINE NEGATIVE ng/ml (NEG <=200); BENZODIAZEPINE, URINE NEGATIVE ng/mL (NEG <=200); CANNABINOID, URINE NEGATIVE ng/mL (NEG <=50); COCAINE, URINE NEGATIVE ng/mL (NEG <=300)
[2022-09-16 23:37] LABS: OPIATE, URINE NEGATIVE ng/mL (NEG <=2000); PHENCYCLIDINE SCREEN,URINE NEGATIVE ng/mL (NEG <=25)
--- NOTE | 2022-09-17 00:40 | NUR ---
Pt resting at this time no c/o discomfort.
[2022-09-17 05:22] VITALS: BP 119/51
--- NOTE | 2022-09-17 05:23 | NUR ---
Patient discharged with v/s stable. Written and verbal after care instructions given and explained. New Rx for tylenol and zofran. Patient verbalized understanding. Ambulatory with steady gait. All questions addressed prior to discharge. Advised to follow up with PMD.
[2022-09-18] MEDS ORDERED: METO-486 PO (05:14)
[2022-09-18] MEDS ORDERED: CALC-870 PO (05:14)
[2022-09-18] MEDS ORDERED: FAMO-92 PO (05:14)
== END 2022-09-17 05:22 | disposition home or self-care (01) ==
LOC: MED 16:38
DX: R10.84 Generalized abdominal pain (principal); R11.2 Nausea with vomiting, unspecified; R51.9 Headache, unspecified; R06.02 Shortness of breath; Z20.822 Contact with and (suspected) exposure to COVID-19; K21.9 Gastro-esophageal reflux disease without esophagitis; I10 Essential (primary) hypertension; F03.90 Unspecified dementia, unspecified severity, without behavioral disturbance, psychotic disturbance, mood disturbance, and anxiety; Z86.73 Personal history of transient ischemic attack (TIA), and cerebral infarction without residual deficits; Z79.899 Other long term (current) drug therapy; Z79.891 Long term (current) use of opiate analgesic; Z79.82 Long term (current) use of aspirin; Z79.4 Long term (current) use of insulin
CPT/HCPCS: 36415; 70450; 71275; 74176; 80053; 80305; 81001; 82948; 83605; 83690; 85025; 87426; 96361; 96374; 96375; 99285; J1200; J1630; J1885; J2060; J2765; J7030; Q9967

== ENCOUNTER 2022-09-18 03:35 | Emergency (ER) | payer MEDICAID ==
[~2022-09-18] VITALS: Ht 152.4 cm; Wt 71.7 kg
[~2022-09-18 03:35] MED LIST changes: +ACET-10509 PO
[2022-09-18 03:58] VITALS: BP 177/95
--- NOTE | 2022-09-18 04:07 | NUR ---
pt to bed
--- NOTE | 2022-09-18 04:10 | NUR ---
Patient BIB by family from home. C/O abdominal pain x 4-5 days. Patient reported, had epigastric pain, nausea, vomiting for 4-5 days, Hx GERD, Gastritis, DM, HLD, Patient came to ER on 09/16/22 for same symptoms.
--- NOTE | 2022-09-18 04:56 | NUR ---
Dr. Catherine examining patient.
[2022-09-18 04:57] LABS: BASOPHILS % (AUTO) 0.4 % (0.0-2.0); EOSINOPHILS % (AUTO) 0.2 % (0.0-4.0); HEMATOCRIT 33.1 % (36-48); LYMPHOCYTES # (AUTO) 0.7 K/uL (2.5-16.5); LYMPHOCYTES % (AUTO) 11.6 % (20.5-51.1); MEAN CORPUSCULAR HEMOGLOBIN 28 pg (27-31); MEAN CORPUSCULAR HGB CONC 33 g/dL (33-37); MEAN CORPUSCULAR VOLUME 85.4 fL (80-94); MONOCYTES # (AUTO) 0.2 K/uL (0.8-1.0); MONOCYTES % (AUTO) 2.7 % (1.7-9.3); NEUTROPHILS # (AUTO) 5.3 K/uL (1.8-7.7); NEUTROPHILS % (AUTO) 85.1 % (42.2-75.2); PLATELET COUNT (AUTO) 232 K/uL (140-450); RED BLOOD CELL COUNT(AUTO) 3.88 MIL/uL (4.20-5.40); RED CELL DISTRIBUTION WIDTH 13.3 % (11.6-13.7); WHITE BLOOD COUNT (AUTO) 6.2 K/uL (4.8-10.8)
[2022-09-18 05:13] LABS: APPEARANCE,URINE CLEAR (CLEAR); BILIRUBIN,URINE NEGATIVE (NEGATIVE); BLOOD, URINE NEGATIVE (NEGATIVE); COLOR,URINE YELLOW (YELLOW); LEUKOCYTE ESTERASE ,URINE TRACE (NEGATIVE); NITRITE, URINE NEGATIVE (NEGATIVE); UGLUCOSE 3+ (NEGATIVE)
[2022-09-18] MEDS ORDERED: FAMO-92 PO (05:14)
[2022-09-18] MEDS ORDERED: ALUMINUM HYD/MAG/SIMETHICONE 30 ML UDC ONE (05:14)
[2022-09-18] MEDS ORDERED: METO-486 PO (05:14)
[2022-09-18] MEDS ORDERED: DICYCLOMINE HCL LIQUID 10 MG/5 ML UDC ONE (05:14)
[2022-09-18] MEDS ORDERED: CALC-870 PO (05:14)
[2022-09-18 05:16] LABS: ALBUMIN 3.7 g/dL (3.4-5.0); ANION GAP 19.1 (8-16); CARBON DIOXIDE 22.4 mmol/L (21-32); POTASSIUM 4.5 mmol/L (3.5-5.1)
[2022-09-18] MEDS: DICYCLOMINE HCL LIQUID 20 MG, ALUMINUM HYD/MAG/SIMETHICONE 30 ML, LIDOCAINE VISCOUS 2% ... PO ONE ×3 (05:25)
[2022-09-18] MEDS: FAMOTIDINE 20 MG/2 ML VIAL IVP ONE (05:25)
[2022-09-18] MEDS: ONDANSETRON 4 MG/2 ML VIAL IVP ONE (05:26)
[2022-09-18] MEDS: METOCLOPRAMIDE 10 MG/2 ML INJ VIAL IVP ONE (05:26)
[2022-09-18 05:47] VITALS: BP 156/95
--- NOTE | 2022-09-18 05:47 | NUR ---
Patient discharged with v/s stable. Written and verbal after care instructions given and explained. Patient alert, oriented and verbalized understanding of instructions. Ambulatory with steady gait. All questions addressed prior to discharge. ID band removed. Patient advised to follow up with PMD. Rx of Maalax, Pepcid and Reglan given. Patient educated on indication of medication including possible reaction and side effects. Opportunity to ask questions provided and answered.
[2022-09-18 06:02] LABS: RBC,URINE 0-5 /HPF (0-5)
== END 2022-09-18 05:47 | disposition home or self-care (01) ==
LOC: MED 03:35
DX: E11.43 Type 2 diabetes mellitus with diabetic autonomic (poly)neuropathy (principal); K31.84 Gastroparesis; K29.70 Gastritis, unspecified, without bleeding; E11.65 Type 2 diabetes mellitus with hyperglycemia; F03.90 Unspecified dementia, unspecified severity, without behavioral disturbance, psychotic disturbance, mood disturbance, and anxiety; K21.9 Gastro-esophageal reflux disease without esophagitis; I10 Essential (primary) hypertension; Z86.73 Personal history of transient ischemic attack (TIA), and cerebral infarction without residual deficits; Z79.899 Other long term (current) drug therapy; Z79.891 Long term (current) use of opiate analgesic; Z79.82 Long term (current) use of aspirin; Z79.4 Long term (current) use of insulin
CPT/HCPCS: 36415; 80053; 81001; 82948; 83690; 85025; 87040; 87086; 96374; 96375; 99284; J2405; J2765; J3490